=== PATIENT | female | born 1980 | race Caucasian/White ===

== ENCOUNTER 2022-11-20 13:21 | Outpatient (REF) | payer OTHER, SELFPAY ==
[2022-11-20 15:18] LABS: Rheumatoid Factor < 13.0 IU/mL (<15.0)
[2022-11-22 02:04] LABS: Lyme Abs Screen <0.90 index
[2022-11-24 14:14] LABS: Anti Nuclear Antibody Screen NEGATIVE (NEGATIVE)
== END 2022-11-20 13:22 | disposition home or self-care (01) ==
LOC: HO.LAB 13:21
PROVIDERS: PCP Family Medicine; Visit Provider Psychiatry & Neurology Neurology
DX: M79.7 Fibromyalgia (principal)
CPT/HCPCS: 36415; 82550; 86038; 86039; 86431; 86617; 86618

== ENCOUNTER → 2022-12-30 15:08 | Outpatient (BNVA) | payer OTHER, SELFPAY | PROVIDERS: PCP Family Medicine; Visit Provider Physician Assistant Surgical | DX: E66.9 Obesity, unspecified (principal); Z68.34 Body mass index [BMI] 34.0-34.9, adult; I10 Essential (primary) hypertension | CPT/HCPCS: 99202 ==

== ENCOUNTER 2023-06-14 16:56 | Inpatient (IN) | payer OTHER, SELFPAY ==
--- NOTE | ~2023-06-14 | CT_ITS ---
EXAMINATION: CT ABDOMEN AND PELVIS WITH CONTRAST CLINICAL INFORMATION: Right lower quadrant abdominal pain. COMPARISON: None available. TECHNIQUE: Multidetector volumetric images were obtained from the superior aspect of the liver through the pubic symphysis following administration 85 mL of Omnipaque 350 intravenous contrast. Sagittal and coronal reformatted images were obtained on the technologist's workstation. Oral contrast: No This CT examination was performed using dose optimization techniques as appropriate, variously including the following: *Automated exposure control *Adjustment of mA and/or kV according to patient size (this includes techniques or standardized protocols for targeted exams where dose is matched to indication/reason for exam; i.e. extremities or head) *Use of iterative reconstruction technique DLP: 678 mGy-cm FINDINGS: LUNG BASES: Subtle pleural-based opacities likely represent hypoventilatory changes. LIVER, GALLBLADDER, AND BILIARY TREE: The liver is normal in size, shape, and attenuation. No focal hepatic lesion or biliary ductal dilatation is present. The gallbladder is surgically absent. PANCREAS: Unremarkable. SPLEEN: Unremarkable. ADRENAL GLANDS: Unremarkable. KIDNEYS AND URETERS: The kidneys are normal in size, shape, and attenuation. No hydronephrosis, hydroureter, or calculi seen. No perinephric stranding. Exophytic cortical hypodensity at superior lateral cortex of the left kidney and intracortical hypodensity within the superolateral cortex of the right kidney, likely represent cysts. BLADDER: Unremarkable. GASTROINTESTINAL TRACT: The small and large bowel are unremarkable. Small sliding hiatal hernia. The appendix is abnormal, measures 1.2 cm at its maximum diameter shows mural thickening, enhancement of the mucosa as well as the wall and periappendiceal fat stranding, consistent with acute appendicitis (39:6). No evidence of any perforation, periappendiceal abscess formation or fluid collection. ABDOMINAL WALL: No significant hernia is appreciated. LYMPH NODES: Normal. VASCULAR: Unremarkable. PELVIC VISCERA: Uterus is heterogeneous, abnormally enlarged, most consistent with intramural fibroids. Bilateral adnexal hypodensities likely represent enlarged follicle-containing otherwise normal-appearing ovaries. Tiny focal calcifications are also noted within the right adnexal region. OSSEOUS STRUCTURES: Unremarkable. CT/CT abdomen pelvis w IV con IMPRESSION: 1. Abnormal study showing features of acute nonperforated appendicitis. 2. Surgically absent gallbladder. 3. Abnormal enlarged uterus showing features most consistent with uterine fibroids. Bilateral adnexal hypodensities likely represent enlarged follicle-containing otherwise normal-appearing ovaries. This critical result was discussed with Dr. Brock Marie M.D. at 7:51 PM on 06/14/2023 and it was ascertained that the content and urgency of the report was understood at the time of direct communication. Fleischner guidelines were followed.
[2023-06-14 17:01] VITALS: BP 166/98; PULSE 110; RESP 20; TEMP 37.2; O2SAT 100; BMI 31.4
--- NOTE | 2023-06-14 17:06 | ED_ITS ---
HPI - Abdominal Pain General Chief Complaint: Abdominal Pain Stated Complaint: abd pain Time Seen by Provider: 06/14/23 17:15 Source: patient Mode of arrival: ambulatory Limitations: no limitations History of Present Illness HPI narrative: 42-year-old female presents with right-sided abdominal pain. Symptoms started today. She woke up normal. She then developed a constant right-sided abdominal pain. The pain does not radiate. She describes as sharp stabbing pain. She rates it a 20/10. There is no clear relieving features. Worsened by certain positions. It is associated with nausea no vomiting. She denies any diarrhea constipation. She has had no fevers or chills. Related Data Home Medications Medication Instructions Recorded Confirmed ibuprofen 600 mg tablet 600 mg PO Q6H PRN pain 12/30/22 12/30/22 lisinopril 10 mg tablet 10 mg PO DAILY 12/30/22 12/30/22 Allergies Allergy/AdvReac Type Severity Reaction Status Date / Time kiwi Allergy Mild THROAT Verified 12/30/22 15:57 [Kiwi (Actinidia Chinensis)] SWELLING Review of Systems Review of Systems CONSTITUTIONAL: Denies weight loss, fever and chills. HEENT: Denies changes in vision and hearing. RESPIRATORY: Denies SOB and cough. CV: Denies palpitations no CP. GI: + abdominal pain, nausea, - vomiting and diarrhea. : Denies dysuria and urinary frequency. MSK: Denies myalgia and joint pain. SKIN: Denies rash and pruritus. NEUROLOGICAL: Denies headache and syncope. PSYCHIATRIC: Denies recent changes in mood. Denies anxiety and depression. All other ROS are negative unless in HPI PMFSH Past Medical History Medical History Delivery with history of Surgical History Hx of breast reduction, elective Hx of carpal tunnel repair Hx of foot surgery Hx of hand surgery Hx of tubal ligation S/P panniculectomy Family History Family History Mother Arthritis Diabetes Hypertension Depression Anxiety Father Diabetes Hypertension Son No problems noted. Son Heart murmur Daughter No problems noted. Social History Social History Alcohol intake: never Patient Tobacco Use Status: Never used Tobacco Smoked in Last 30 Days: No Use of substances other than those prescribed or required for medical reasons: Yes Substance Use Type: Marijuana Substance Use Frequency: Occasionally Advance Directives: No Advance Directives Information Provided: No Patient : No Physical Exam ED Vital Signs: Vital Signs - 24 hr 06/14/23 17:01 06/14/23 17:43 Temperature 99 F 99.9 F Pulse Rate 110 H 105 H Respiratory Rate 20 20 Blood Pressure 166/98 H 163/91 H Pulse Oximetry 100 98 Oxygen Delivery Method Room Air Room Air BMI result Body Mass Index 31.4 GEN: Well developed, no acute distress, alert, oriented HEENT: Normocephalic, atraumatic, normal external ears, nose appears normal, no oropharyngeal edema or exudates Eyes: Normal to appearance Neck: Supple, no lymphadenopathy Respiratory: Talks in complete sentences, no respiratory distress, clear to aus cultation bilaterally Cardiovascular: Regular rate and rhythm, no murmurs rubs or gallops Abdomen: Soft, right lower quadrant tenderness with guarding, no rebound, negative Hess sign, nondistended, no guarding, no rebound Back: No CVA tenderness Extremities: No clubbing cyanosis or edema Neurologic: No focal neurologic deficits, cranial nerves 2-12 intact, strength is 5/5 bilaterally Skin: No rash Course Course Course Narrative: This is a rapid medical exam. Deferred additional HPI, ROS, PE to primary provider. 42 yo female with history of HTN, fibrimyalgia here with right sided abdominal pain since this AM with chills. VSS WIll check labs, UA, urine preg VSS Reevaluation(s) Reevaluation #1: Received a call from the radiologist, positive for appendicitis which I independently reviewed the images and agree with the findings. Will order Zosyn and call General surgery. Time: 19:53 Reevaluation #2: Spoke with general surgeon, patient will be admitted. Starting patient on Zosyn. Patient aware findings. Time: 20:04 Medical Decision Making Medical Decision Making MDM Narrative: Patient presents with right-sided abdominal pain. Examination reveals right lower quadrant tenderness with guarding no rebound. This is most concerning for acute appendicitis. Differential diagnosis include IBD IBS, mesenteric adenitis, epiploic appendagitis, UTI, pyelonephritis, ureterolithiasis. Plan will be to obtain a CT scan to rule out the above differential diagnosis. Will check routine laboratory analysis with. Will provide patient with analgesia, IV fluids and antiemetics. Differential Diagnosis Differential Diagnoses: The differential diagnosis associated with the presentation includes (See above) Admission/Observation Consideration of admission/observation: Escalation of care including admis marin/observation considered Lab Data MDM Lab Attestation statement: I reviewed the patient's lab results. 06/14/23 17:28 06/14/23 17:42 Labs: Lab Results 06/14/23 06/14/23 06/14/23 Range/Units 17:28 17:42 18:01 WBC 17.5 H (4.8-10.8) X10*3/uL RBC 4.84 (4.20-5.50) X10*6/uL Hgb 11.1 L (12.0-16.0) g/dl Hct 36.7 L (37.0-47.0) % MCV 75.8 L (80.0-98.0) fL MCH 22.9 L (27.0-33.0) pg MCHC 30.2 L (31.0-35.0) g/dl RDW 18.0 H (11.0-16.0) % Plt Count 338 (160-400) X10*3/uL MPV 9.2 L (9.4-12.3) fL Immature Gran % (Auto) 0.5 H (0.0-0.4) % Neut % (Auto) 84.6 H (45-73) % Lymph % (Auto) 8.7 L (20-40) % Wallace % (Auto) 5.0 (2-11) % Eos % (Auto) 0.9 (0-4) % Baso % (Auto) 0.3 (0-2) % Lymph # (Auto) 1.5 (1.2-4.9) X10*3/uL Wallace # (Auto) 0.9 (0.1-1.2) X10*3/uL Eos # (Auto) 0.2 (0.0-0.4) X10*3/uL Baso # (Auto) 0.1 (0.0-0.2) X10*3/uL Abs Immat Gran (auto) 0.09 H (0.00-0.03) X10*3/uL Absolute Neuts (auto) 14.8 H (2.0-8.3) x10*3/uL Absolute Nucleated RBC 0.000 (0.0-0.012) X10*3/uL Nucleated RBC % (auto) 0.0 (0.0-0.2) /100WBC Smear Tech's Comments VERIFIED Sodium 138 (135-145) mmol/L Potassium 3.7 (3.3-5.1) mmol/L Chloride 104 (96-108) mmol/L Carbon Dioxide 25 (22-29) mmol/L Anion Gap 13 (12-20) BUN 6 L (9-16) mg/dL Creatinine 0.66 (0.5-1.4) mg/dL Estim Creat Clear Calc 102.1 Estimated GFR > 60 Random Glucose 91 (60-115) mg/dL Calcium 9.1 (8.4-10.2) mg/dL Total Bilirubin 0.9 (0.0-1.0) mg/dL Direct Bilirubin 0.3 (0.0-0.5) mg/dL AST 15 (5-31) U/L ALT 10 (0-31) U/L Alkaline Phosphatase 80 (39-117) U/L Total Protein 7.7 (6.5-8.0) g/dL Albumin 4.1 (3.5-5.0) g/dL Lipase 9 (8-78) U/L Urine Color Yellow Urine Appearance Cloudy Urine pH 6.0 (5.0-9.0) Ur Specific [place] 1.015 (1.005-1.025) Urine Protein Negative (Neg-Trace) mg/dL Urine Glucose (UA) Negative (Negative) mg/dL Urine Ketones Negative (Negative) mg/dL Urine Blood Negative (Negative) Urine Nitrite Negative (Negative) Ur Leukocyte Esterase Trace H (Negative) Urine RBC 0-2 (0-2) /HPF Urine WBC 6-10 H (0-5) /HPF Ur Squamous Epith Cells 0-2 (0-2) /HPF Urine Bacteria Trace (None Seen) Hyaline Casts 0-2 (0-2) /LPF Urine Test (NEGATIVE) 06/14/23 Range/Units 18:01 WBC (4.8-10.8) X10*3/uL RBC (4.20-5.50) X10*6/uL Hgb (12.0-16.0) g/dl Hct (37.0-47.0) % MCV (80.0-98.0) fL MCH (27.0-33.0) pg MCHC (31.0-35.0) g/dl RDW (11.0-16.0) % Plt Count (160-400) X10*3/uL MPV (9.4-12.3) fL Immature Gran % (Auto) (0.0-0.4) % Neut % (Auto) (45-73) % Lymph % (Auto) (20-40) % Wallace % (Auto) (2-11) % Eos % (Auto) (0-4) % Baso % (Auto) (0-2) % Lymph # (Auto) (1.2-4.9) X10*3/uL Wallace # (Auto) (0.1-1.2) X10*3/uL Eos # (Auto) (0.0-0.4) X10*3/uL Baso # (Auto) (0.0-0.2) X10*3/uL Abs Immat Gran (auto) (0.00-0.03) X10*3/uL Absolute Neuts (auto) (2.0-8.3) x10*3/uL Absolute Nucleated RBC (0.0-0.012) X10*3/uL Nucleated RBC % (auto) (0.0-0.2) /100WBC Smear Tech's Comments Sodium (135-145) mmol/L Potassium (3.3-5.1) mmol/L Chloride (96-108) mmol/L Carbon Dioxide (22-29) mmol/L Anion Gap (12-20) BUN (9-16) mg/dL Creatinine (0.5-1.4) mg/dL Estim Creat Clear Calc Estimated GFR Random Glucose (60-115) mg/dL Calcium (8.4-10.2) mg/dL Total Bilirubin (0.0-1.0) mg/dL Direct Bilirubin (0.0-0.5) mg/dL AST (5-31) U/L ALT (0-31) U/L Alkaline Phosphatase (39-117) U/L Total Protein (6.5-8.0) g/dL Albumin (3.5-5.0) g/dL Lipase (8-78) U/L Urine Color Urine Appearance Urine pH (5.0-9.0) Ur Specific [place] (1.005-1.025) Urine Protein (Neg-Trace) mg/dL Urine Glucose (UA) (Negative) mg/dL Urine Ketones (Negative) mg/dL Urine Blood (Negative) Urine Nitrite (Negative) Ur Leukocyte Esterase (Negative) Urine RBC (0-2) /HPF Urine WBC (0-5) /HPF Ur Squamous Epith Cells (0-2) /HPF Urine Bacteria (None Seen) Hyaline Casts (0-2) /LPF Urine Test NEGATIVE (NEGATIVE) Independent Interpretation I performed an independent interpretation of an: CT Scan (Acute appendicitis) Interpretation: CT/CT abdomen pelvis w IV con IMPRESSION: ? 1. Abnormal study showing features of acute nonperforated appendicitis. 2. Surgically absent gallbladder. 3. Abnormal enlarged uterus showing features most consistent with uterine fibroids. Bilateral adnexal hypodensities likely represent enlarged follicle-containing otherwise normal-appearing ovaries. ? This critical result was discussed with Dr. Brock Marie M.D. at 7:51 PM on 06/14/2023 and it was ascertained that the content and urgency of the report was understood at the time of direct communication. ? ? Fleischner guidelines were followed. Dictated By: Alejandra Ugarte MD Signed By: <Electronically signed by Alejandra Ugarte MD in OV> 06/14/231952 Prescription Management I considered prescription management with: Pain Medication Medications Administered Discontinued Medications Generic Name Dose Route Start Last Admin Trade Name Freq PRN Reason Stop Dose Admin Sodium Chloride 1,000 mls @ 999 mls/hr 06/14/23 17:30 06/14/23 18:09 Ns IV 06/14/23 18:30 999 mls/hr .Q1H1M EFRAIN Administration Iohexol 100 ml 06/14/23 18:58 06/14/23 18:59 Iohexol 350 Mg/Ml 100 Ml Infus..Btl IV 06/14/23 18:59 85 ml ONCE ONE Administration Ketorolac Tromethamine 15 mg 06/14/23 17:24 06/14/23 18:13 Ketorolac Tromethamine 15 Mg/Ml Vial IVPUSH 06/14/23 17:25 15 mg ONCE ONE Administration Ondansetron HCl 4 mg 06/14/23 17:24 06/14/23 18:13 Ondansetron Hcl 4 Mg/2 Ml Vial IVPUSH 06/14/23 17:25 4 mg ONCE ONE Administration Discharge Plan Discharge Clinical Impression: Abdominal pain, Acute appendicitis Patient Disposition: Admitted As Inpatient Prescriptions: No Action lisinopril 10 mg tablet 10 mg PO DAILY ibuprofen 600 mg tablet 600 mg PO Q6H PRN (Reason: pain)
[2023-06-14 17:43] VITALS: BP 163/91; PULSE 105; RESP 20; TEMP 37.7; O2SAT 98
[2023-06-14 17:54] LABS: Basophils Absolute Auto 0.1 X10*3/uL (0.0-0.2); Basophils Percent Auto 0.3 % (0-2); Eosinophils Absolute Auto 0.2 X10*3/uL (0.0-0.4); Eosinophils Percent Auto 0.9 % (0-4); Hematocrit 36.7 % (37.0-47.0); Hemoglobin 11.1 g/dl (12.0-16.0); Imm Gran Abs Auto 0.09 X10*3/uL (0.00-0.03); Imm Gran Pct Auto 0.5 % (0.0-0.4); Lymphocytes Absolute Auto 1.5 X10*3/uL (1.2-4.9); Lymphocytes Percent Auto 8.7 % (20-40); MANUAL DIFF FLAG SCAN; Mean Corpuscular HGB Conc 30.2 g/dl (31.0-35.0); Mean Corpuscular Hemoglobin 22.9 pg (27.0-33.0); Mean Corpuscular Volume 75.8 fL (80.0-98.0); Mean Platelet Volume 9.2 fL (9.4-12.3); Monocytes Absolute Auto 0.9 X10*3/uL (0.1-1.2); Neutrophils Absolute Auto 14.8 x10*3/uL (2.0-8.3); Neutrophils Percent Auto 84.6 % (45-73); PLT CLUMP 1; Red Blood Count 4.84 X10*6/uL (4.20-5.50); SCAN SMEAR FLAG 1
--- NOTE | 2023-06-14 17:54 | PC.NURSE ---
pt c/o worsening sharp abdominal pain, RLQ starting in AM after breakfast. radiating to to rest of abdomen and back. pt reports chills, normal BM eariler today, nausea w/o vomiting. temp 99.9, HR 105, pain 10/10.
[2023-06-14 18:01] LABS: Alanine Aminotransferase 10 U/L (0-31); Albumin Level 4.1 g/dL (3.5-5.0); Alkaline Phosphatase 80 U/L (39-117); Anion Gap 13 (12-20); Aspartate Amino Transferase 15 U/L (5-31); Bilirubin Direct 0.3 mg/dL (0.0-0.5); Bilirubin Total 0.9 mg/dL (0.0-1.0); Blood Urea Nitrogen 6 mg/dL (9-16); Calcium 9.1 mg/dL (8.4-10.2); Carbon Dioxide 25 mmol/L (22-29); Chloride 104 mmol/L (96-108); Creatinine Clr Calc Pharmacy 102.1; Estimated Glomerular Filt Rate > 60; Glucose Random 91 mg/dL (60-115); Lipase 9 U/L (8-78); Potassium 3.7 mmol/L (3.3-5.1); Sodium 138 mmol/L (135-145); Total Protein 7.7 g/dL (6.5-8.0)
[2023-06-14 18:09] LABS: Appearance Urine Cloudy; Color Urine Yellow; Glucose Urine UA Negative (Negative); Leukocyte Esterase Urine Trace (Negative); Nitrite Urine Negative (Negative); Specific Gravity - Urine 1.015 (1.005-1.025); UMIC TRIGGER UACC YES; Urine Blood Negative (Negative); Urine Ketones Negative (Negative); Urine Protein Negative (Neg-Trace)
[2023-06-14] MEDS: 0.9 % Sodium Chloride 1,000 ML 999 ML IV (18:09)
[2023-06-14 18:10] LABS: UPreg QC Valid YES; Urine Pregnancy NEGATIVE (NEGATIVE)
[2023-06-14 18:12] LABS: Platelet Count 338 X10*3/uL (160-400); SLIDE REVIEW VERIFIED; White Blood Count 17.5 X10*3/uL (4.8-10.8)
[2023-06-14] MEDS: ondansetron HCL 4 MG/2 ML VIAL IVPUSH (18:13)
[2023-06-14] MEDS: Ketorolac Tromethamine 15 MG/ML VIAL IVPUSH (18:13)
[2023-06-14 18:14] LABS: Bacteria Urine Trace (None Seen); Hyaline Casts Urine 0-2 /LPF (0-2); RBC Urine 0-2 /HPF (0-2); Squamous Epithelial Cell Urine 0-2 /HPF (0-2); UACC Culture Trigger YES
[2023-06-14] MEDS: iohexoL 350 MG/ML 100 ML INFUS..BTL IV (18:59)
--- NOTE | 2023-06-14 19:59 | P.HPGS_ITS ---
History of Present Illness History of Present Illness Date of Service: 06/15/23 Chief complaint: acute appendicitis Narrative: Catalina Latif is a 42 year old female presenting with acute onset of abd pain starting earlier today. She had progression of the pain & came to the ER where she was noted to have low-grade temp of 99.9F, leukocytosis & CT A/P with retrocecal appendicitis. PSH includes reduction mammoplasty, panniculectomy & cholecystectomy PMFSH Past Medical History Medical History Delivery with history of Family History Family History Mother Arthritis Diabetes Hypertension Depression Anxiety Father Diabetes Hypertension Son No problems noted. Son Heart murmur Daughter No problems noted. Surgical History Surgical History Hx of breast reduction, elective Hx of carpal tunnel repair Hx of foot surgery Hx of hand surgery Hx of tubal ligation S/P panniculectomy Social History Social History Alcohol intake: never Patient Tobacco Use Status: Never used Tobacco Smoked in Last 30 Days: No Use of substances other than those prescribed or required for medical reasons: Yes Substance Use Type: Marijuana Substance Use Frequency: Occasionally Advance Directives: No Advance Directives Information Provided: No Patient : No Meds Allergies Allergy/AdvReac Type Severity Reaction Status Date / Time kiwi Allergy Mild THROAT Verified 12/30/22 15:57 [Kiwi (Actinidia Chinensis)] SWELLING Active Medications: Current Medications Piperacillin Sod/Tazobactam (Sod 3.375 gm/ Sodium Chloride) 50 mls @ 100 mls/hr IV ONCE ONE Stop: 06/14/23 20:23 Home Medications Medication Instructions Recorded Confirmed Last Taken Type lisinopril 10 mg tablet 10 mg PO DAILY 12/30/22 06/14/23 06/14/23 History lamotrigine 25 mg tablet 25 mg PO BID 06/14/23 06/14/23 06/14/23 History hydroxyzine HCl 10 mg tablet 10 mg PO BEDTIME PRN Anxiety 06/15/23 06/15/23 06/14/23 History norelgestromin 150 mcg-e.estradiol 1 patch topical QWEEK 06/15/23 06/15/23 06/14/23 History 35 mcg/24 hr weekly transderm patch (Xulane) trazodone 50 mg tablet 50 mg PO NEEDED insomnia 06/15/23 06/15/23 06/14/23 History Physical Exam Vital Signs: Vital Signs: Last Vital Signs Temp 99.9 F 06/14/23 17:43 Pulse 105 H 06/14/23 17:43 Resp 20 06/14/23 17:43 BP 163/91 H 06/14/23 17:43 Pulse Ox 98 06/14/23 17:43 O2 Del Method Room Air 06/14/23 17:43 BMI result Body Mass Index 31.4 The patient is non-toxic & in good spirits NC/AT, PERRLA, EOMI Mood, affect & judgment all appear appropriate Sclera anicteric conjunctiva pink and moist Oropharynx is clear with no aphthous ulcers, Mallampati class 4, mucous membranes moist Neck is supple with no masses, adenopathy or bruits Heart is regular, normal S1-S2 no rubs or murmurs Lungs are clear and equal anteriorly with no audible wheezing, rubs or dullness to percussion Abdomen is oese with no demonstrable hernias. Right lower quadrant tenderness that is localized to the right lower quadrant is present and diffuse peritonitis is not noted. Well-healed abdominal scars are noted with no evidence of hernia. No HSM, rebound, rigidity, guarding, masses or bruits are present. Rectal exam is deferred Skin has good turgor and is free of rashes Extremities free of cyanosis clubbing edema Results Results Labs: Short CBC 06/14/23 Range/Units 17:28 WBC 17.5 H (4.8-10.8) X10*3/uL Hgb 11.1 L (12.0-16.0) g/dl Hct 36.7 L (37.0-47.0) % Plt Count 338 (160-400) X10*3/uL BMP 06/14/23 17:42 Sodium 138 Potassium 3.7 Chloride 104 Carbon Dioxide 25 BUN 6 L Creatinine 0.66 Calcium 9.1 Liver Function 06/14/23 Range/Units 17:42 Total Bilirubin 0.9 (0.0-1.0) mg/dL Direct Bilirubin 0.3 (0.0-0.5) mg/dL AST 15 (5-31) U/L ALT 10 (0-31) U/L Alkaline Phosphatase 80 (39-117) U/L Albumin 4.1 (3.5-5.0) g/dL Urine 06/14/23 06/14/23 Range/Units 18:01 18:01 Urine Color Yellow Urine Appearance Cloudy Urine pH 6.0 (5.0-9.0) Ur Specific [place] 1.015 (1.005-1.025) Urine Protein Negative (Neg-Trace) mg/dL Urine Glucose (UA) Negative (Negative) mg/dL Urine Test NEGATIVE (NEGATIVE) Abdomen CT scan report/results: report reviewed and image reviewed CT scan - pelvis: report reviewed and image reviewed Assessment and Plan (1) Acute appendicitis: Status: Acute (2) Fibromyalgia: Status: Acute (3) HTN (hypertension): Status: Acute (4) Obesity (BMI 30-39.9): Status: Acute Plan Admit for IV Abx, IVF & pain management OR tomorrow morning BP elevated, give Lisinopril, 10mg PO now Void bladder on-call to OR, SCDs ADDENDUM The patient has minimal improvement in her symptoms today. We reviewed options including antibiotic/medical management trial verses appendectomy. Patient seemed understand her options and declined an house superintendent. I reviewed the inherent risks of surgery which include, but are not limited to bleeding, infection, need for conversion to open operation, the possibility of negative exploration or unexpected pathology, activity restrictions postoperatively to minimize incisional hernia, and the risks of needing another procedure in the event of a complication were all discussed and apparently understood. The patient seemed understand and wants to proceed with a laparoscopic, possible open appendectomy. We also reviewed the possibility that her retrocecal appendix could be perforated and require a temporary drain, cultures and IV antibiotics and that I would no after the operation. Patient will continue NPO, void her urinary bladder risk reduction counselor and have SCDs in place. Zosyn has been ordered. Patient is requested that I communicate with her , Marito, at [phone] following the procedure. Time Spent With Patient Time: Total time managing care of this patient today ____ minutes. Quality Stroke Does the patient have a stroke diagnosis?: No VTE Prior VTE?: No VTE Risk Level:: Surgical - moderate VTE Device Contraindication: N/A - Device Ordered VTE Drug Contraindication: N/A - Med Ordered Procedures Date of Service Date of Service: 06/15/23
[2023-06-14] MEDS: Piperacillin Sodium/Tazobactam 3.375 GM in 0.9 % Sodium Chloride 50 ML IV (20:28)
[2023-06-14] MEDS: lisinopriL 10 MG TABLET PO (20:31)
[2023-06-14] MEDS: Lactated Ringers 1,000 ML 125 ML IVCONT (21:06)
[2023-06-14 21:39] VITALS: BP 135/89; PULSE 107; RESP 18; O2SAT 97
--- NOTE | 2023-06-14 22:21 | PC.NURSE ---
Addendum entered by Luli Soto RN 06/15/23 04:16: New IV inserted to right hand #20. Previous IV was infiltrated. Original Note: Assumed care at 2200. Pt came via stretcher. Alert and oriented. Ambulatory. LR infusing at 125an hour. 5/10 pain level to her abdomen. Kept NPO with meds. Settled in bed. Requesting from Provider trazodone for sleep. MD Toney aware.
[2023-06-14] MEDS: Acetaminophen 325 MG TABLET 975 MG PO (22:31)
[2023-06-15] VITALS (16 sets, daily range): BP systolic 88–125; BP diastolic 44–77; PULSE 59–99; RESP 16–17; TEMP 36.2–37.1; O2SAT 91–100
[2023-06-15] MEDS: HYDROmorphone HCl 0.5 MG/0.5 ML SYRINGE 0.25 MG IVPUSH ×3 (00:36→08:30)
[2023-06-15] MEDS: Piperacillin Sodium/Tazobactam 3.375 GM in 0.9 % Sodium Chloride 50 ML IV ×2 (01:48→08:30)
[2023-06-15 05:37] LABS: MANUAL DIFF FLAG NO
[2023-06-15 05:40] LABS: Basophils Percent Auto 0.3 % (0-2); Eosinophils Absolute Auto 0.2 X10*3/uL (0.0-0.4); Eosinophils Percent Auto 1.7 % (0-4); Hematocrit 31.2 % (37.0-47.0); Hemoglobin 9.6 g/dl (12.0-16.0); Imm Gran Abs Auto 0.05 X10*3/uL (0.00-0.03); Imm Gran Pct Auto 0.4 % (0.0-0.4); Lymphocytes Absolute Auto 2.3 X10*3/uL (1.2-4.9); Lymphocytes Percent Auto 16.2 % (20-40); Mean Corpuscular HGB Conc 30.8 g/dl (31.0-35.0); Mean Corpuscular Hemoglobin 23.1 pg (27.0-33.0); Mean Platelet Volume 8.4 fL (9.4-12.3); Monocytes Absolute Auto 0.9 X10*3/uL (0.1-1.2); Monocytes Percent Auto 6.2 % (2-11); Neutrophils Absolute Auto 10.5 x10*3/uL (2.0-8.3); Neutrophils Percent Auto 75.2 % (45-73); Platelet Count 348 X10*3/uL (160-400); Red Blood Count 4.16 X10*6/uL (4.20-5.50); Red Cell Distribution Width 17.8 % (11.0-16.0); White Blood Count 13.9 X10*3/uL (4.8-10.8)
[2023-06-15 05:52] LABS: Anion Gap 12 (12-20); Blood Urea Nitrogen 6 mg/dL (9-16); Calcium 8.8 mg/dL (8.4-10.2); Carbon Dioxide 26 mmol/L (22-29); Chloride 104 mmol/L (96-108); Creatinine Clr Calc Pharmacy 105.2; Estimated Glomerular Filt Rate > 60; Glucose Random 93 mg/dL (60-115); Potassium 3.6 mmol/L (3.3-5.1); Sodium 138 mmol/L (135-145)
--- NOTE | 2023-06-15 07:36 | PC.NURSE ---
Dr. smalls at bedside pt aware of plan of care for surgery this am. pt has been npo since midnight.
--- NOTE | 2023-06-15 08:21 | PHA.MEDREC ---
Pharmacy Consult ? Medication Reconciliation Pharmacy has completed the medication reconciliation.
--- NOTE | 2023-06-15 08:28 | MHC.EDTECH ---
[facility]. patient awaiting surgery. tolerated ambulating by herself well.
[2023-06-15] MEDS: 0.9 % Sodium Chloride Flush 3 ML SYRINGE IVFLUSH (08:32)
[2023-06-15] MEDS: ondansetron HCL 4 MG/2 ML VIAL IVPUSH (09:00)
--- NOTE | 2023-06-15 09:10 | PC.NURSE ---
PT IS A/O X 4 NO SOB/DANY NOTED SPEAKS IN FULL SENTENCES. PT C/O 5/10 R SIDE PAIN, MED X 1 WITH DILAUDED 0.25MG. PT IS AWARE OF PLAN OF CARE FOR SURGERY TODAY PER DR. ORR.
--- NOTE | 2023-06-15 09:13 | HO.ANESPROP2 ---
HPI - Anesthesia Eval Consult details Narrative: Acute appendicitis PMFSH Active Problems Active Problems: All Active Problems (Updated 06/14/23 @ 20:04 by Brock Marie MD) Abdominal pain (Acute) Acute appendicitis (Acute) Restless leg syndrome (Acute) Fibromyalgia (Acute) Degenerative disorder of musculoskeletal system (Acute) HTN (hypertension) (Acute) Obesity (BMI 30-39.9) (Acute) Past Medical History Medical History Delivery with history of Family History Family History Mother Arthritis Diabetes Hypertension Depression Anxiety Father Diabetes Hypertension Son No problems noted. Son Heart murmur Daughter No problems noted. Family history of problems with anesthesia: No Surgical History Surgical History Hx of breast reduction, elective Hx of carpal tunnel repair Hx of foot surgery Hx of hand surgery Hx of tubal ligation S/P panniculectomy History of Problems with Anesthesia: No Social History Social History Alcohol intake: never Patient Tobacco Use Status: Never used Tobacco Substance Use Type: Marijuana Meds Allergies Allergy/AdvReac Type Severity Reaction Status Date / Time kiwi Allergy Mild THROAT Verified 12/30/22 15:57 [Kiwi (Actinidia Chinensis)] SWELLING Active Medications: Current Medications Acetaminophen (Acetaminophen 325 Mg Tablet) 975 mg PO Q6H PRN PRN Reason: Pain, Mild (Pain Scale 1-3) Last Admin: 06/14/23 22:31 Dose: 975 mg Hydromorphone HCl (Hydromorphone Hcl 0.5 Mg/0.5 Ml Syringe) 0.25 mg IVPUSH Q2H PRN; Protocol PRN Reason: Pain, Moderate(Pain Scale 4-6) Last Admin: 06/15/23 08:30 Dose: 0.25 mg Piperacillin Sod/Tazobactam (Sod 3.375 gm/ Sodium Chloride) 50 mls @ 100 mls/hr IV Q6H EFRAIN Last Admin: 06/15/23 08:30 Dose: 100 mls/hr Lactated Ringer's (Lr) 1,000 mls @ 125 mls/hr IVCONT .Q8H [facility] Last Admin: 06/15/23 05:58 Dose: Not Given Ibuprofen (Ibuprofen 400 Mg Tablet) 400 mg PO Q6H PRN PRN Reason: Pain, Mild (Pain Scale 1-3) Ondansetron HCl (Ondansetron Hcl 4 Mg/2 Ml Vial) 4 mg IVPUSH Q6H PRN PRN Reason: Nausea and Vomiting Last Admin: 06/15/23 09:00 Dose: 4 mg Sodium Chloride (0.9 % Sodium Chloride Flush 3 Ml Syringe) 3 ml IVFLUSH QSHIFT [facility] Last Admin: 06/15/23 08:32 Dose: 3 ml Home Medications Medication Instructions Recorded Confirmed Last Taken Type lisinopril 10 mg tablet 10 mg PO DAILY 12/30/22 06/14/23 06/14/23 History lamotrigine 25 mg tablet 25 mg PO BID 06/14/23 06/14/23 06/14/23 History hydroxyzine HCl 10 mg tablet 10 mg PO BEDTIME PRN Anxiety 06/15/23 06/15/23 06/14/23 History norelgestromin 150 mcg-e.estradiol 1 patch topical QWEEK 06/15/23 06/15/23 06/14/23 History 35 mcg/24 hr weekly transderm patch (Xulane) trazodone 50 mg tablet 50 mg PO NEEDED insomnia 06/15/23 06/15/23 06/14/23 History Exam Exam Date and Time: June 15, 2023 0913 Height,Weight and Vital Signs: Height 5 ft 1 in Weight 75.4 kg Last Vital Signs Temp 98.4 F 06/15/23 07:19 Pulse 76 06/15/23 07:19 Resp 17 06/15/23 07:19 BP 123/62 06/15/23 07:19 Pulse Ox 95 06/15/23 07:19 O2 Del Method Room Air 06/15/23 07:19 Pertinent Lab Results Pertinent Lab Results: Laboratory Tests 06/14/23 06/14/23 06/14/23 17:28 17:42 18:01 WBC 17.5 H RBC 4.84 Hgb 11.1 L Hct 36.7 L MCV 75.8 L MCH 22.9 L MCHC 30.2 L RDW 18.0 H Plt Count 338 MPV 9.2 L Immature Gran % (Auto) 0.5 H Neut % (Auto) 84.6 H Lymph % (Auto) 8.7 L [place] % (Auto) 5.0 Eos % (Auto) 0.9 Baso % (Auto) 0.3 Lymph # (Auto) 1.5 [place] # (Auto) 0.9 Eos # (Auto) 0.2 Baso # (Auto) 0.1 Abs Immat Gran (auto) 0.09 H Absolute Neuts (auto) 14.8 H Absolute Nucleated RBC 0.000 Nucleated RBC % (auto) 0.0 Smear Tech's Comments VERIFIED Sodium 138 Potassium 3.7 Chloride 104 Carbon Dioxide 25 Anion Gap 13 BUN 6 L Creatinine 0.66 Estim Creat Clear Calc 102.1 Estimated GFR > 60 Random Glucose 91 Calcium 9.1 Total Bilirubin 0.9 Direct Bilirubin 0.3 AST 15 ALT 10 Alkaline Phosphatase 80 Total Protein 7.7 Albumin 4.1 Prealbumin Lipase 9 Urine Color Yellow Urine Appearance Cloudy Urine pH 6.0 Ur Specific [place] 1.015 Urine Protein Negative Urine Glucose (UA) Negative Urine Ketones Negative Urine Blood Negative Urine Nitrite Negative Ur Leukocyte Esterase Trace H Urine RBC 0-2 Urine WBC 6-10 H Ur Squamous Epith Cells 0-2 Urine Bacteria Trace Hyaline Casts 0-2 Urine Test 06/14/23 06/14/23 06/15/23 18:01 20:49 05:27 WBC 13.9 H RBC 4.16 L Hgb 9.6 L Hct 31.2 L MCV 75.0 L MCH 23.1 L MCHC 30.8 L RDW 17.8 H Plt Count 348 MPV 8.4 L Immature Gran % (Auto) 0.4 Neut % (Auto) 75.2 H Lymph % (Auto) 16.2 L [place] % (Auto) 6.2 Eos % (Auto) 1.7 Baso % (Auto) 0.3 Lymph # (Auto) 2.3 [place] # (Auto) 0.9 Eos # (Auto) 0.2 Baso # (Auto) 0.0 Abs Immat Gran (auto) 0.05 H Absolute Neuts (auto) 10.5 H Absolute Nucleated RBC 0.000 Nucleated RBC % (auto) 0.0 Smear Tech's Comments Sodium Potassium Chloride Carbon Dioxide Anion Gap BUN Creatinine Estim Creat Clear Calc Estimated GFR Random Glucose Calcium Total Bilirubin Direct Bilirubin AST ALT Alkaline Phosphatase Total Protein Albumin Prealbumin 21.0 Lipase Urine Color Urine Appearance Urine pH Ur Specific [place] Urine Protein Urine Glucose (UA) Urine Ketones Urine Blood Urine Nitrite Ur Leukocyte Esterase Urine RBC Urine WBC Ur Squamous Epith Cells Urine Bacteria Hyaline Casts Urine Test NEGATIVE 06/15/23 05:27 WBC RBC Hgb Hct MCV MCH MCHC RDW Plt Count MPV Immature Gran % (Auto) Neut % (Auto) Lymph % (Auto) [place] % (Auto) Eos % (Auto) Baso % (Auto) Lymph # (Auto) [place] # (Auto) Eos # (Auto) Baso # (Auto) Abs Immat Gran (auto) Absolute Neuts (auto) Absolute Nucleated RBC Nucleated RBC % (auto) Smear Tech's Comments Sodium 138 Potassium 3.6 Chloride 104 Carbon Dioxide 26 Anion Gap 12 BUN 6 L Creatinine 0.64 Estim Creat Clear Calc 105.2 Estimated GFR > 60 Random Glucose 93 Calcium 8.8 Total Bilirubin Direct Bilirubin AST ALT Alkaline Phosphatase Total Protein Albumin Prealbumin Lipase Urine Color Urine Appearance Urine pH Ur Specific [place] Urine Protein Urine Glucose (UA) Urine Ketones Urine Blood Urine Nitrite Ur Leukocyte Esterase Urine RBC Urine WBC Ur Squamous Epith Cells Urine Bacteria Hyaline Casts Urine Test Airway Mallampati Class: II TM Dist: >3cm Neck ROM: Full Loose/Missing/Broken Teeth: No Heart: RRR Lungs: CTA Assessment and Plan Assessment Anesthesia Assessment: Anesthesia Plan Discussed and Chart Reviewed Final Anesthetic Review Family History of Problems with Anesthesia: No History of Problems with Anesthesia: No NPO: Yes ASA Class: III Final Preanesthetic Review: No Changes in Pt Med Stat, Meds/Allgs Chart Reviewed, Consent Obtained/Reviewed and Anes Risks/Benef Reviewed Patient Risk: Intermediate Procedure Risk: Intermediate Anesthetic Plan Anesthetic Plan: GA Disposition: Standard PACU
--- NOTE | 2023-06-15 09:38 | P.OP_ITS ---
Operative Note Operative Note Date of Service: 06/15/23 Narrative: Preop diagnosis: [Acute appendicitis, retrocecal] Postop diagnosis: [Same] Procedure: [Laparoscopic appendectomy] Surgeon: Mo Owens MD Assist: [] Anesthesia: [GET, local: Lidocaine, 1% with epi/ropivacaine, 0.5% in 50 50 mix] Estimated blood loss: [3cc] Specimen: [1) peritoneal fluid for Gram stain and culture, 2) appendix] Intraoperative findings: [Several cc of turbid fluid was noted in the pelvis and aspirated, the base of the appendix was retroperitoneal but grossly, there was no findings of appendiceal perforation.] Indications: [The patient is a 42-year-old woman who had progressive 24 hour abdominal pain localizing to the right lower quadrant who presented with fever to 99.9 F, leukocytosis and CT demonstrating a retrocecal appendicitis without obvious perforation. While the patient had some clinical improvement on IV antibiotics, the option of medical management and operative management were discussed and the patient seemed understand her options. She declined an cab worker. I reviewed the inherent risks of surgery which include, but are not limited to bleeding, infection, need for conversion to open operation, the possibility of negative exploration or unexpected pathology, activity restrictions postoperatively to minimize incisional hernia, and the risks of needing another procedure in the event of a complication were all discussed and apparently understood.? The patient seemed understand and wants to proceed with a laparoscopic, possible open appendectomy.? We also reviewed the possibility that her retrocecal appendix could be perforated and require a temporary drain, cultures and IV antibiotics and that I would no after the operation.] Procedure: [The patient was identified in the preoperative holding area and again in the operating room. An appropriate time-out was performed. The patient had voided bladder transmission superintendent, SCDs were in place and she has been on Zosyn since admission. The patient was induced in general endotracheal anesthesia administered with excellent effect. The abdomen was widely prepped and draped in the usual manner for surgery. Preemptive local was used at all trocar insertion sites. The abdomen was accessed using a Veress needle. A transverse supraumbilical incision was made, the Veress needle inserted without incident, an appropriate drop test performed and a pneumoperitoneum of 15 mmHg was obtained using carbon dioxide. Opening pressures were 5 mmHg. Next, the Veress needle was withdrawn and the abdomen was accessed through the incision with a 30 degree/5 mm laparoscoped over Optiview trocar technique without incident. In examining the bowel & mesentary deep to the Veress needle, no evidence of injury was present. The remaining trocars were placed under direct laparoscopic vision with preemptive analgesia. The patient was then positioned in Trendelenburg, banked left. The appendix was identified and tracked down to the cecum. The base of the appendix was retrocecal requiring mobilization of the cecum and peritoneal fold. A window was made in the mesoappendix and the mesoappendix carefully dissected using the 5 mm LigaSure [place] tip. An Endo-MELITON stapler, purple load, was placed across the appendiceal base on the cecum the and fired with good hemostasis and closure. The specimen was placed in an Endo-Catch bag and delivered through the 12 mm port in the left lower quadrant. Operative field was irrigated and inspected for hemostasis which was good. Patient was returned to neutral position, the abdomen deflated and the trocars removed. 12 mm fascia was closed with 0- Polysorb and skin closed with 4-0 Monocryl subcuticular sutures. The abdomen was washed and dried, Mastisol and Steri-Strips applied followed by Band-Aids. Patient tolerated the procedure well and was sent to the recovery in stable condition. All sponge instrument counts were correct. ]
[2023-06-15] MEDS: Lactated Ringers 1,000 ML 125 ML IVCONT (10:18)
--- NOTE | 2023-06-15 11:43 | PC.NURSE ---
RN TO RN REPORT GIVEN TO DAMARIS (OR). PT TRANSPORTED TO OR IN A W/C WITH LR 125ML/HR.
--- NOTE | 2023-06-15 13:09 | P.DS_ITS ---
DS: Providers Provider Date of Service: 06/15/23 Date of admission: 06/14/23 20:01 Primary care physician: Lisa Yan MD Consults: 06/14/23 19:54 Consult to General Surgery Stat Consulting [place] [facility] [place] [facility] Reason for consultation: acute appendicitis DS: Diagnosis Discharge Diagnosis (1) Acute appendicitis: Status: Acute (2) Fibromyalgia: Status: Acute (3) HTN (hypertension): Status: Acute (4) Obesity (BMI 30-39.9): Status: Acute DS: Summary Hospital Course Hospital Course: The patient is a 42-year-old woman who presented with abdominal pain, leukocytosis, fever and CT demonstrating acute appendicitis. Options including medical management with IV antibiotics versus surgery were discussed at length. The patient declined an it compliance analyst. She wanted to proceed with surgery. Intraoperatively, she was noted to have non perforated appendicitis, underwent an uneventful laparoscopic appendectomy and was discharged home in improved condition. Time Spent with Patient Time attestation: Total time managing care of this patient today ____ minutes. Discharge coordination time: Less than 30 minutes Quality: Safe Use of Opioids Does Pt have an Active Cancer Diagnosis on the Problem List?: No Quality: Stroke Does the patient have a stroke diagnosis?: No Physical Exam Vital Signs: Vital Signs: Last Vital Signs Temp 98.4 F 06/15/23 07:19 Pulse 76 06/15/23 07:19 Resp 17 06/15/23 07:19 BP 123/62 06/15/23 07:19 Pulse Ox 95 06/15/23 07:19 O2 Del Method Room Air 06/15/23 07:19 BMI result Body Mass Index 31.4 DS: Data Data Completed and Pending Pending studies at discharge: Pending at discharge 06/15/23 13:06 Surgical [PTH] Routine Labs on day of discharge: Laboratory Results - last 24 hr 06/14/23 06/14/23 06/14/23 17:28 17:42 18:01 WBC 17.5 H RBC 4.84 Hgb 11.1 L Hct 36.7 L MCV 75.8 L MCH 22.9 L MCHC 30.2 L RDW 18.0 H Plt Count 338 MPV 9.2 L Immature Gran % (Auto) 0.5 H Neut % (Auto) 84.6 H Lymph % (Auto) 8.7 L [place] % (Auto) 5.0 Eos % (Auto) 0.9 Baso % (Auto) 0.3 Lymph # (Auto) 1.5 [place] # (Auto) 0.9 Eos # (Auto) 0.2 Baso # (Auto) 0.1 Abs Immat Gran (auto) 0.09 H Absolute Neuts (auto) 14.8 H Absolute Nucleated RBC 0.000 Nucleated RBC % (auto) 0.0 Smear Tech's Comments VERIFIED Sodium 138 Potassium 3.7 Chloride 104 Carbon Dioxide 25 Anion Gap 13 BUN 6 L Creatinine 0.66 Estim Creat Clear Calc 102.1 Estimated GFR > 60 Random Glucose 91 Calcium 9.1 Total Bilirubin 0.9 Direct Bilirubin 0.3 AST 15 ALT 10 Alkaline Phosphatase 80 Total Protein 7.7 Albumin 4.1 Prealbumin Lipase 9 Urine Color Yellow Urine Appearance Cloudy Urine pH 6.0 Ur Specific [place] 1.015 Urine Protein Negative Urine Glucose (UA) Negative Urine Ketones Negative Urine Blood Negative Urine Nitrite Negative Ur Leukocyte Esterase Trace H Urine RBC 0-2 Urine WBC 6-10 H Ur Squamous Epith Cells 0-2 Urine Bacteria Trace Hyaline Casts 0-2 Urine Test 06/14/23 06/14/23 06/15/23 18:01 20:49 05:27 WBC 13.9 H RBC 4.16 L Hgb 9.6 L Hct 31.2 L MCV 75.0 L MCH 23.1 L MCHC 30.8 L RDW 17.8 H Plt Count 348 MPV 8.4 L Immature Gran % (Auto) 0.4 Neut % (Auto) 75.2 H Lymph % (Auto) 16.2 L [place] % (Auto) 6.2 Eos % (Auto) 1.7 Baso % (Auto) 0.3 Lymph # (Auto) 2.3 [place] # (Auto) 0.9 Eos # (Auto) 0.2 Baso # (Auto) 0.0 Abs Immat Gran (auto) 0.05 H Absolute Neuts (auto) 10.5 H Absolute Nucleated RBC 0.000 Nucleated RBC % (auto) 0.0 Smear Tech's Comments Sodium Potassium Chloride Carbon Dioxide Anion Gap BUN Creatinine Estim Creat Clear Calc Estimated GFR Random Glucose Calcium Total Bilirubin Direct Bilirubin AST ALT Alkaline Phosphatase Total Protein Albumin Prealbumin 21.0 Lipase Urine Color Urine Appearance Urine pH Ur Specific [place] Urine Protein Urine Glucose (UA) Urine Ketones Urine Blood Urine Nitrite Ur Leukocyte Esterase Urine RBC Urine WBC Ur Squamous Epith Cells Urine Bacteria Hyaline Casts Urine Test NEGATIVE 06/15/23 05:27 WBC RBC Hgb Hct MCV MCH MCHC RDW Plt Count MPV Immature Gran % (Auto) Neut % (Auto) Lymph % (Auto) [place] % (Auto) Eos % (Auto) Baso % (Auto) Lymph # (Auto) [place] # (Auto) Eos # (Auto) Baso # (Auto) Abs Immat Gran (auto) Absolute Neuts (auto) Absolute Nucleated RBC Nucleated RBC % (auto) Smear Tech's Comments Sodium 138 Potassium 3.6 Chloride 104 Carbon Dioxide 26 Anion Gap 12 BUN 6 L Creatinine 0.64 Estim Creat Clear Calc 105.2 Estimated GFR > 60 Random Glucose 93 Calcium 8.8 Total Bilirubin Direct Bilirubin AST ALT Alkaline Phosphatase Total Protein Albumin Prealbumin Lipase Urine Color Urine Appearance Urine pH Ur Specific [place] Urine Protein Urine Glucose (UA) Urine Ketones Urine Blood Urine Nitrite Ur Leukocyte Esterase Urine RBC Urine WBC Ur Squamous Epith Cells Urine Bacteria Hyaline Casts Urine Test Discharge Plan Discharge Anticipated Discharge Date/Time: 06/15/23 13:08 Patient Disposition: Home, Self-Care Discharge Diagnosis: Acute appendicitis, status post lap appy Referrals: Lisa Yan MD [Primary Care Provider] - 1 Week Mo Owens MD [Physician] - 1 Week Discharge Medications: New oxycodone 5 mg tablet 5 mg PO Q4H PRN (Reason: pain) Qty: 14 0RF Rx Instructions: Partial Fill upon patient request. Continued lamotrigine 25 mg tablet 25 mg PO BID trazodone 50 mg tablet 50 mg PO NEEDED hydroxyzine HCl 10 mg tablet 10 mg PO BEDTIME PRN (Reason: Anxiety) Xulane 150-35 mcg/24 hr patch weekly 1 patch topical QWEEK lisinopril 10 mg tablet 10 mg PO DAILY Discharge Orders: Discharge Order (Routine); Ordered 06/15/23 Ordered By: Mo Owens Diet: Advance to usual diet Activity on Discharge: No heavy lifting Stand Alone Forms: Patient Portal Discharge page Activity Restrictions/Additional Instructions: You had a laparoscopic appendectomy performed by Dr. Owens. It is normal to feel some minor abdominal discomfort due to the gas from the operation, however if you develop severe pain in your abdomen or chest, fevers over 100F, vomiting and are unable to keep liquids down, you should contact Dr. Owens or report to the nearest emergency department. If your incisions become red, swollen and tender, draining pus or have problems, please contact Dr. Owens report to the nearest emergency department. If you have bandages on your incisions, leave them in place for 48 hours, then remove them. You can shower but not soak in a tub after removing the bandages. If there are paper tapes known as butterflies/Steri-Strips, leave them fall off on their own in 1-2 weeks. You do not need to put another bandage on your incisions unless your clothing rubs and irritates your incisions. You can shower after you removed your bandages in 48 hours, but do not soak in a tub, go in a pool, or go swimming in a [place] pond or ocean. Please let the paper tapes to dry after getting them wet. You do not need to replace a bandage on lesser clothing irritates the incision. You may find that pants with an elastic waist like gym cloths or suspenders are more comfortable than pants requiring a belt until your incisions completely heal. Because of the operation, you should not lift more than 20 lb for the next 4 weeks. Any strenuous activity such as lifting more than 20 lb, digging, yoga, any athletic activity, like running, soccer, or other strenuous activity, lifting heavy bags/groceries, swimming, martial arts, or other strenuous athletic activities can cause hernias. If you have any questions regarding a specific activity, please ask Dr. Owens. Avoiding strenuous activities will minimize the risk of incisional hernias. At your 1 week post-op office visit, Dr. Owens will discuss returning to work on light duty with you. Since you can perform light duty, you are not disabled, but your employer may not allow you to return until you have no restrictions; it is up to you to discuss this issue, as we cannot disclose personal information. Please bring any paperwork to that follow-up appointment from your employer. Please note that you are not disabled and need to discuss your work restrictions for medical reasons with your employer. If you do not have a follow-up post-op visit, call [phone] to schedule one, or call with questions. If you were prescribed an antibiotic, continue taking the medication as prescribed. The anesthesia from the operation and pain medicine will cause constipation. You can purchase [id number]-vnsvsip stool softener known as Colace/docusate, 100 mg and take 2 tablets in the morning with breakfast and 2 tablets in the evening after dinner to minimize this problem. Even if you are not taking narcotics, the anesthesia can cause constipation. Unless you have a medical reason, you should take [id number] Tylenol/acetaminophen, 2 tablets with vslb-xkg-[id number] ibuprofen, 2 tablets, every 6 hours to help with pain. Add the narcotic pain medicine if you are still having pain. Ice packs are also allowed to minimize pain and swelling. You should eat a high-protein, high-fiber, low-fat diet to optimize healing. Please resume any preoperative medications unless otherwise directed by Dr. Owens. Please contact your primary care provider for a follow-up appointment in 2 weeks. Care Plan Goals: Allow adequate postoperative healing Health Concerns: Follow-up with your primary care provider regarding other medical issues Plan of Treatment: Allow adequate postoperative healing Assessment: Status post laparoscopic appendectomy for acute appendicitis
--- NOTE | 2023-06-15 13:58 | PC.NURSE ---
called pharmacy because md smalls discharged patient before patient was even discharged or medicated from the pacu dept. called pharmacy and spoke to tatum and verified this occurrence.
[2023-06-15] MEDS: oxyCODONE HCl Immed Release 5 MG TABLET PO (14:26)
--- NOTE | 2023-06-15 14:47 | PC.NURSE ---
SENT HOME A INCENTIVE SPIROMETER. TEACHING PROVIDED.
--- NOTE | 2023-06-15 15:04 | PC.NURSE ---
PATIENT DISCHARGED HOME AT 1505.
== END 2023-06-15 12:00 | disposition home or self-care (01) | DRG 234 ==
LOC: HO.ED 20:04 → HO.EDOVER 20:27
PROVIDERS: Admitting Provider Surgery; Emergency Provider Emergency Medicine; PCP Family Medicine; Visit Provider Surgery
PROC: 0DTJ4ZZ Resection of Appendix, Percutaneous Endoscopic Approach (ICD-10-PCS; CPT 44970; principal; 2023-06-15 10:30)
DX: K35.80 Unspecified acute appendicitis (principal); E66.9 Obesity, unspecified; M79.7 Fibromyalgia; Z68.31 Body mass index [BMI] 31.0-31.9, adult; Z79.899 Other long term (current) drug therapy
CPT/HCPCS: 36415; 74177; 80048; 80076; 81001; 81025; 83690; 84134; 85025; 87070; 87073; 87086; 87205; 88304; 99285; C1713; J1100; J1170; J1885; J2405; J2543; J2795; Q9967

== ENCOUNTER → 2023-06-14 20:01 | Outpatient (BNV) | payer OTHER, SELFPAY | PROVIDERS: Admitting Provider Surgery; Emergency Provider Emergency Medicine; PCP Family Medicine; Visit Provider Surgery | DX: K35.80 Unspecified acute appendicitis (principal); M79.7 Fibromyalgia; I10 Essential (primary) hypertension; E66.9 Obesity, unspecified | CPT/HCPCS: 44970; 99024; 99233 ==

== ENCOUNTER 2025-07-12 11:58 | Outpatient (AMB) | payer OTHER, SELFPAY ==
--- OUTSIDE RECORDS SUMMARY | 2025-07-07 10:45 | XMS_ITS | Encounter Summary ---
Author Organization [facility] Address [address] [place] [address] Care Team Providers Care Fiscal Clerk Name Role Phone [facility] Primary Care Provider [phone] Reason for Referral * Medications - Denied Specialty Diagnoses / Procedures Referred By Contac t Referred To Contact Diagnoses Class 3 severe obesity due to excess calories with body mass index (BMI) of 40.0 to 44.9 in adult, unspecified whether serious comorbidity present (CMS/HCC V24, CMS/HCC V28) Majo Coronel MD [address] [place] [address] Phone: tel: fax: Referral ID Status Reason Start Date Expiration Date Visits Re quested Visits Authorized [id number] Denied 1 1 Reason for Visit * Reason Comments Follow-up 6 month Encounter Details Date Type Department Care Team (Late st Contact Info) Description 07/07/2025 10:45 AM EDT Office Visit Bariatric Surgery - [address] [place] [address] Majo Coronel MD [address] [place] [address] Class 3 severe obesity due to excess calories with body mass index (BMI) of 40.0 to 44.9 in adult, unspecified whether serious comorbidity present (CMS/HCC V24, [facility] V28) (Primary Dx) Social History Tobacco Use Types Packs/Day Years Used Date Smoking Tobacco: Former Cigarettes Smokeless Tobacco: Former Alcohol Use Standard Drinks/Week Comments Never 0 (1 standard drink = 0.6 oz pur e alcohol) Comments No Sex and Gender Information Value Date Recorded Sex Assigned at Female 01/25/2025 1:56 PM EDT Legal Sex Female 4:47 PM EST Gender Identity Female 01/25/2025 1:56 PM EDT Sexual Orientation Straight 01/25/2025 1: 56 PM EDT documented as of this encounter Last Filed Vital Signs Vital Sign Reading Time Taken Comments Blood Pressure 125/82 07/07/2025 10:50 AM EDT Pulse 75 07/07/2025 10:50 AM EDT Temperature 36.4 C (97.5 F) 07/07/2025 10:50 AM EDT Respiratory Rate - - Oxygen Saturation - - Inhaled Oxygen Concentration - - Weight 70.3 kg (155 lb) 07/07/2025 10:50 AM EDT Height 154.9 cm (5' 1 ) 07/07/2025 10:50 AM EDT Body Mass Index 29.29 07/07/2025 10:50 AM EDT documented in this encounter Ordered Prescriptions Prescription Sig Dispense Quantity Refills Last Filled Start Date End Date tirzepatide, weight loss, (Zepbound) 10 mg/0.5 mL injectionIndicatio ns:Class 3 severe obesity due to excess calories with body mass index (BMI) of 40.0 to 44.9 in adult, unspecified whether serious comorbidity present ([facility] V24, [facility] V28) Inject 0.5 mL (10 mg total) under the skin every 7 (seven) days. 2 mL 1 07/07/2025 5 phentermine 15 mg capsuleIndications :Class 3 severe obesity due to excess calories with body mass index (BMI) of 40.0 to 44.9 in adult, unspecified whether serious comorbidity present ([facility] V24, [facility] V28) Take 1 capsule (15 mg total) by mouth 1 (one) time each day before breakfast. Max Daily Amount: 15 mg 30 each 07/07/2025 5 documented in this encounter Progress Notes * Viriato M Homer, MD - 07/07/2025 10:45 AM EDT Ms. Latif is a 44 y.o. year old female who presents for surgical follow up regarding obesity. HPI: Ms. Latif Has been on tirzepatide, 7.5 mg. Nausea first day. Has lost 7 lbs since December. ROS: GENERAL: No malaise, significant unintentional weight loss, fever, chills or night sweats. HEENT: No changes in hearing or vision, no nose bleeds or other nasal problems. NECK: No lumps, goiter, pain or significant neck swelling RESPIRATORY: No cough, wheezing or shortness of breath CARDIOVASCULAR: No chest pain, leg swelling or palpitations. GI: No abdominal discomfort, nausea, vomiting, or change in bowel habits. : No dysuria, frequency or incontinence. SKIN: No lesions, rash or itching. HEMATOLOGY: No prolonged bleeding, easy bruisability. LYMPHOLOGY No swollen nodes. MUSCULOSKELETAL: No abnormalities. NEURO: No abnormalities. All other systems reviewed which are negative. PAST MEDICAL HISTORY: Patient Active Problem List Diagnosis Date Noted Date Diagnosed Degenerative disc disease, lumbar 03/01/2025 Anemia 07/30/2024 HTN (hypertension) 07/30/2024 Obesity (BMI 30-39.9) 07/30/2024 Fibromyalgia 02/18/2024 Peripheral neuropathy 02/18/2024 Seizure disorder ([facility] V24, [facility] V28) 07/02/2023 Anxiety 03/13/2023 PAST SURGICAL HISTORY: Past Surgical History: Procedure Laterality Date APPENDECTOMY PROCEDURE: HISTORICAL APPENDECTOMY BLADDER SURGERY PROCEDURE: HISTORICAL BLADDER SURGERY; COMMENT: ?Tumor excision BREAST REDUCTION PROCEDURE: MS BREAST REDUCTION CARPAL TUNNEL RELEASE Bilateral PROCEDURE: MS NEUROPLASTY &/TRANSPOS MEDIAN NRV CARPAL TUNNE; COMMENT: in 2009 SECTION PROCEDURE: HISTORICAL DELIVERY OTHER SURGICAL HISTORY PROCEDURE: HISTORICAL PANNICULECTOMY OTHER SURGICAL HISTORY 09/08/2015 PROCEDURE: MS MYOMECTOMY 1-4 MYOMAS W/250 GM/< ABDOMINAL APPR; COMMENT: Laparotomy, uterine myomectomy. Postop hemoperitoneum, reoperation. OTHER SURGICAL HISTORY Bilateral 06/26/2021 PROCEDURE: MS SALPINGECTOMY COMPLETE/PARTIAL UNI/BI SPX; COMMENT: Laparoscopic salpingectomy OTHER SURGICAL HISTORY 03/08/2024 PROCEDURE: MS LAPS TOTAL HYSTERECT 250 GM/< W/RMVL TUBE/OVARY; COMMENT: Robot assisted total laparoscopic hysterectomy. SOCIAL HISTORY: Social History Tobacco Use Smoking status: Former Types: Cigarettes Smokeless tobacco: Former Substance Use Topics Alcohol use: Never FAMILY HISTORY: Family History Problem Relation Name Age of Onset Breast cancer Maternal Grandmother Breast cancer Mother Uterine cancer Mother Other (Other: DM2) Father HTN Breast cancer Mother's side Maternal cousin. from breast cancer young age. Family Status Relation Name Status MGM (Not Specified) Mother (Not Specified) Father Alive Mother's jayant (Not Specified) No partnership data on file MEDICATIONS: Medications Discontinued During This Encounter Medication Reason tirzepatide, weight loss, (Zepbound) 7.5 mg/0.5 mL injection Alternate therapy ACTIVE MEDICATIONS: No outpatient medications have been marked as taking for the 07/07/25 encounter (Office Visit) with Majo Coronel MD. ALLERGIES: Allergies Allergen Reactions Kiwi Throat closes Kiwi (Actinidia Chinensis) Throat closes PHYSICAL EXAM: Visit Vitals BP 125/82 Pulse 75 Temp 36.4 ??C (97.5 ??F) (Temporal) Ht 1.549 m (61 ) Wt 70.3 kg (155 lb) BMI 29.29 kg/m?? OB Status Hysterectomy Smoking Status Former BSA 1.69 m?? APPEARANCE: Alert and oriented and in no acute distress EYES: Conjunctiva normal and sclera normal and anicteric. NECK: Neck supple with no adenopathy. LYMPH NODES: No gross cervical or clavicular lymphadenopathy. ABDOMEN: non-distended, EXTREMITIES: Extremities warm and well perfused without clubbing, cyanosis, or edema. SKIN: Skin color and texture normal. No rashes or lesions. NEUROLOGIC: Alert and oriented ??3. No motor or sensory deficits in the extremities. LABS/IMAGING: ASSESSMENT: 1. Class 3 severe obesity due to excess calories with body mass index (BMI) of 40.0 to 44.9 in adult, unspecified whether serious comorbidity present (CMS/HCC V24, CMS/HCC V28) PLAN: 1. Will continue with medication, 10 mg. The patient will let us know in few weeks if the medication is being effective or if the patient ishaving side effects. The dose will be adjusted depending upon the response and the presence of sideeffects. Follow-up in 4 months. documented in this encounter Plan of Treatment Upcoming Encounters Date Type Department Care Team (Late st Contact Info) Description 07/26/2025 5:10 PM EDT Appointment Radiology Department [address] [address] 12/29/2025 9:15 AM EST Office Visit Bariatric Surgery - [address] [place] [phone] Majo Coronel MD [address] [place] [phone] 01/09/2026 9:30 AM EDT Office Visit Internal Medicine - [facility] [address] [place] [address] Moses Cheema PA [address] [place] [address] documented as of this encounter Goals Goal Patient Goal Type Associated Problems Recent Progress Patient-Stated? Author PT LTGs General No Abelardo Duran, PT Note: Pt will report no right hip pain with stair management Pt will increase right hip strength to 5/5 Pt will increase right hip PROM to WNL Pt will be independent with HEP documented as of this encounter Visit Diagnoses Diagnosis Class 3 severe obesity due to excess calories with body mass index (BMI) of 40.0 to 44.9 in adult, unspecified whether serious comorbidity present (CMS/HCC V24, CMS/HCC V28)- Primary documented in this encounter Discontinued Medications Medication Sig Discontinue Reason Start Date End Da te tirzepatide, weight loss, (Zepbound) 7.5 mg/0.5 mL injectionIndications:Cla ss 1 obesity due to excess calories with body mass index (BMI) of 30.0 to 30.9 in adult, unspecified whether serious comorbidity present Inject 0.5 mL (7.5 mg total) under the skin every 7 (seven) days. Alternate therapy 06/01/2025 07/07/2025 phentermine 15 mg capsuleIndications:Class 3 severe obesity due to excess calories with body mass index (BMI) of 40.0 to 44.9 in adult, unspecified whether serious comorbidity present (CMS/[facility] V24, CMS/HCC V28) Take 1 capsule (15 mg total) by mouth 1 (one) time each day before breakfast. 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
--- OUTSIDE RECORDS SUMMARY | 2025-07-11 08:00 | XMS_ITS | Encounter Summary ---
Author Organization [facility] Address [address] [place] [address] Care Team Providers Care Forensic Chemist Name Role Phone Julissa Marquez MD Primary Care Provider [phone] Reason for Referral * Imaging (Routine) - Pending Review Specialty Diagnoses / Procedures Referred By Brendon lim Referred To Contact Radiology Diagnoses Thyroid nodule Procedures US Head Neck Soft Tissue Yuki Cheema PA [address] [place] [address] Phone: tel: fax: [address] Phone: tel: Referral ID Status Reason Start Date Expiration Date V isits Requested Visits Authorized [id number] Pending Review 07/11/2025 07/11/2026 1 1 Reason for Visit * Reason Comments Physical Exam Encounter Details Date Type Department Care Team (Late st Contact Info) Description 07/11/2025 8:00 AM EDT Office Visit Internal Medicine - [address] [phone] Yuki Cheema PA [address] [place] [address] Health maintenance examination (Primary Dx); Subacute cough; Thyroid nodule; Primary hypertension; Pneumonia of both lower lobes due to infectious organism Social History Tobacco Use Types Packs/Day Years Used Date Smoking Tobacco: Former Cigarettes Smokeless Tobacco: Former Tobacco Cessation:Counseling Given: Not Answered Alcohol Use Standard Drinks/Week Comments Never 0 (1 standard drink = 0.6 oz pur e alcohol) Housing Instability Answer Date Recorde d Are you worried that in the next 2 months you may not have stable housing? No 07/11/2025 Food Access & Nutrition Answer Date Rec orded Do you have access to a vari ety of food including fruits and vegetables? Yes 07/11/2025 Access to Healthcare Answer Date Record ed Within the last 3 months, ho w many times did you visit the emergency department for your medical care? 1 07/11/2025 Health Literacy Answer Date Recorded How often do you need to hav e someone help you when you read instructions, pamphlets, or other written material from your doctor or pharmacy? Sometimes 07/11/2025 Caregiver: How often do you need to have someone help you when you read instructions, pamphlets, or other written material from your doctor or pharmacy? Not on file 07/11/2025 Financial Risk Answer Date Recorded How hard is it for you to pa y for the very basics like food, housing, medical care, and air conditioning / heating? Somewhat hard 07/11/2025 Transportation Answer Date Recorded Has the lack of transportati on kept you from meetings, work, or from getting things needed for daily living? No Has the lack of transportati on kept you from medical appointments or from getting medications? No 07/11/2025 Social Isolation Answer Date Recorded How often do you feel lonely or isolated from th ose around you? Often 07/11/2025 Food Risk Answer Date Recorded Within the past 12 months we worried whether our food would run out before we got money to buy more. Never true 07/11/2025 Within the past 12 months th e food we bought just didn't last and we didn't have money to get more. Never true 07/11/2025 Dependent Care Answer Date Recorded Do you need help finding or paying for care for your loved ones. For example, exceptional children's teacher or elderly care for an older adult? No 07/11/2025 Education Answer Date Recorded Do you think completing more education or training, like finishing a GED, going to college, or learning a trade, would be helpful for you? Patient declined 07/11/2025 Employment and Income Answer Date Recor ded During the last four weeks, have you been actively looking for work? No 07/11/2025 Living Situation Answer Date Recorded What is your living situation? 0 07/11/2025 Comments No Sex and Gender Information Value Date Recorded Sex Assigned at Female 01/25/2025 1:56 PM EDT Legal Sex Female 4:47 PM EST Gender Identity Female 01/25/2025 1:56 PM EDT Sexual Orientation Straight 01/25/2025 1: 56 PM EDT documented as of this encounter Last Filed Vital Signs Vital Sign Reading Time Taken Comments Blood Pressure 138/82 07/11/2025 8:10 AM EDT Pulse 74 07/11/2025 8:10 AM EDT Temperature - - Respiratory Rate 16 07/11/2025 8:10 AM EDT Oxygen Saturation - - Inhaled Oxygen Concentration - - Weight 70.3 kg (155 lb) 07/11/2025 8:10 AM EDT Height - - Body Mass Index 29.29 07/07/2025 10:50 AM EDT documented in this encounter Ordered Prescriptions Prescription Sig Dispense Quantity Refills Last Filled Start Date End Date azithromycin (ZITHROMAX) 250 mg tablet Take 2 tablets (500 mg total) by mouth 1 (one) time each day for 1 day, THEN 1 tablet (250 mg total) 1 (one) time each day for 4 days. 6 each 07/12/2025 5 amoxicillin-clavul anate (AUGMENTIN) 875-125 mg per tablet Take 1 tablet by mouth 2 (two) times a day for 7 days. 14 each 07/12/2025 5 EPINEPHrine (EPIPEN) 0.3 mg/0.3 mL injection Inject 0.3 mL (0.3 mg total) into the thigh if needed for anaphylaxis. 1 each 2 07/11/2025 6 naproxen (NAPROSYN) 500 mg tablet Take 1 tablet (500 mg total) by mouth 2 (two) times a day with meals. 60 tablet 07/11/2025 gabapentin (NEURONTIN) 100 mg capsule Take 1 capsule (100 mg total) by mouth at bedtime. 30 each 2 07/11/2025 documented in this encounter Progress Notes * Yuki Cheema, RON - 07/11/2025 8:00 AM EDT Behavioral Health Clinics Clinics with multiple Locations in [facility]: (* accepts [facility]) [facility] ([facility])* Offers behavioral health and substance abuse treatment, offers crisis intervention 955-EDJ-FAUM ([phone]) Mental Health or Substance Abuse Crisis [phone] Website: [facility].org Offers telehealth Center [employer] ([facility])* Offers behavioral health and substance abuse treatment 5-138-ECT-HELP ([phone]) Website: chd.org Clinical Support Options ([facility])* Offers behavioral health and substance abuse treatment, offers crisis intervention Mental Health crisis: [phone] ([place]) [phone] ([place]) www.csoin.org Offers telehealth [facility]* Offers behavioral health and substance abuse treatment, bi-lingual ([place]) Website: www.[facility].org [facility]* Offers behavioral health services [phone] Www.[facility].org [facility]* Offers behavioral health services [phone] Multiple locations ([place], [place], [place], [place], [place]) www.servicenet.org Additional Behavioral Health Clinics by [facility]/Town: [place]: [facility] [address], [address] ext. 210 Website: Ahalogycare.net [place]: [facility]* [address] [facility] [address], [place] [phone] Website: Mobile Backstage [place]: [facility] Behavioral Health [address] [place], [place] [phone] [facility] Services [place]* [address], [address], [place], [place] [phone] Website: communitycocone [facility] [address], [place], [place] [phone] Website: www.[facility] centerThe Luxury Closetsamaritan hospitalProtective Systems [place]: [facility] Integrated Behavioral Health Services [address] [place], [place] [phone] [place]: [facility] [address] [place], [place] [phone] [place]: [facility] Behavioral Health Services [address] [place], [place] [phone] [place]: [facility] [address] [phone] [place]: [facility] Family [facility] Counsel[facility]* [address] [facility] [phone] Behavioral Health Resources for Seniors: [facility] [address] [place] [address] SHINE Program through the [place] on Aging* or call your local [facility] Insurance specific information for behavioral health: [employer]etna: www.aetnabehavioralhealth.com [facility]: www.LoopItfairfieldBetter ATM Services.org, or contact [phone] to find an in-senior network systems engineer Health [place]: [facility].org/behavioral-health [facility] ([facility]): This is a specific [facility] plan that has some private providers: www.Pycno.Meshify www.Travelzen.com.Meshify [facility] (manages mental health benefits for [facility], [facility] Navigator Plans, [facility] Indemnity, and sometimes other plans) Substance Abuse Treatment [facility] outpatient treatment center [address] [place] [address] [facility] for inpatient treatment [address] [place] [address] Website: [facility].Meshify Offers telehealth [facility] Outpatient drug and alcohol addiction treatment [address] [place] [address] [place] [phone] [place] [address], [address] [place] [address] [phone] www.RawportersInvarium.Meshify [facility] [address] [place], [place] [phone] [facility] Outpatient opioid treatment and residential program [address] [place] [address] Website: www.[facility].org [facility] Outpatient substance abuse treatment and in-patient detox [address] [facility] [place], [place] [phone] Website: www.[facility] Centers [facility] Substance Abuse Centers: Flexible Nanny for all centers is Nancy [phone] at extension [phone] [place], [place] [address] [place], [place] * RON Lombardo - 07/11/2025 8:00 AM EDTAddended by: YUKI CHEEMA on: 07/12/2025 10:43 AM Modules accepted: Orders * RON Lombardo - 07/11/2025 8:00 AM EDT CHIEF COMPLAINT: Physical Exam IDENTIFIER:Catalina Latif is a 44 y.o. here today for evaluation of general medical health HPI: Catalina Latif is here today for routine physical exam. History of seizure disorder, peripheralneuropathy, fibromyalgia, interstitial cystitis, HTN, GERD, TIMOTEO, MDD. Denies recent hospitalizations or surgeries. No regular exercise. Diet is well balanced. UTD with dental, credit analysis manager. Due for eye. Complaining of dry cough, chills. Cough ongoing for about a month but chills last few days. Also reports dizziness. Overweight: Zepbound 10 mg weekly. Following with weight management. HTN: Amlodipine 5 mg daily, lisinopril 20 mg daily. Fibromyalgia/peripheral neuropathy: Gabapentin 100 mg nightly as needed, naproxen 500 mg twice daily. ROS: GENERAL: No malaise, significant weight loss or fever HEENT: No changes in hearing or vision, nose bleeds or other nasal problems NECK: No lumps, goiter, pain or significant neck swelling RESPIRATORY: No cough, wheezing or shortness of breath CARDIOVASCULAR: No chest pain, leg swelling or palpitations BREAST: no lumps, discharge, pain or change in skin GI: No abdominal discomfort, blood in stools or black stools : No dysuria, frequency or incontinence WARD SECRETARY: No abnormal vaginal bleeding or abnormal vaginal discharge. MUSCULOSKELETAL: No joint pain or swelling, back pain, or muscle pain. SKIN: No lesions, rash or itching PSYCH: No sleep disturbance, mood disorder or recent psychosocial stressors. HEMATOLOGY/LYMPHOLOGY No prolonged bleeding, easy bruisability or swollen nodes ENDOCRINE: No cold or heat intolerance, polyuria, polydipsia or goiter. 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 V24, [facility] V28) 07/02/2023 Anxiety 03/13/2023 GERD (gastroesophageal reflux disease) 02/28/2015 PAST SURGICAL HISTORY: Past Surgical History: Procedure Laterality Date APPENDECTOMY PROCEDURE: HISTORICAL APPENDECTOMY BLADDER SURGERY PROCEDURE: HISTORICAL BLADDER SURGERY; COMMENT: ?Tumor excision BREAST REDUCTION PROCEDURE: NE BREAST REDUCTION CARPAL TUNNEL RELEASE Bilateral PROCEDURE: NE NEUROPLASTY &/TRANSPOS MEDIAN NRV CARPAL TUNNE; COMMENT: in 2009 SECTION PROCEDURE: HISTORICAL DELIVERY OTHER SURGICAL HISTORY PROCEDURE: HISTORICAL PANNICULECTOMY OTHER SURGICAL HISTORY 09/08/2015 PROCEDURE: NE MYOMECTOMY 1-4 MYOMAS W/250 GM/< ABDOMINAL APPR; COMMENT: Laparotomy, uterine myomectomy. Postop hemoperitoneum, reoperation. OTHER SURGICAL HISTORY Bilateral 06/26/2021 PROCEDURE: NE SALPINGECTOMY COMPLETE/PARTIAL UNI/BI SPX; COMMENT: Laparoscopic salpingectomy OTHER SURGICAL HISTORY 03/08/2024 PROCEDURE: NE LAPS TOTAL HYSTERECT 250 GM/< W/RMVL TUBE/OVARY; COMMENT: Robot assisted total laparoscopic hysterectomy. IMMUNIZATIONS/INJECTIONS: Most Recent Immunizations Administered Date(s) Administered Influenza Quadravalent, MDCK, 0.5ml, preservative free (Flucelvax) 6mo and older 10/11/2021 HEALTH MAINTENANCE: Health Maintenance Topic Date Due Breast Cancer Screening Never done DTaP,Tdap,and Td Vaccines (1 - Tdap) Never done Hepatitis B Vaccines (1 of 3 - 19+ 3-dose series) Never done Cervical Cancer Screening: Pap Smear Never done Social Influencers of Health Screening Never done Depression Screening 10/27/2024 COVID-19 Vaccine ( - 2023- season) Never done Influenza Vaccine (1) 06/27/2025 Hypertension/CHF/CAD Annual BMP Blood Test 01/13/2026 Cholesterol Screening (Lipid Panel) 06/25/2029 Colorectal Cancer Screening: Colonoscopy 08/27/2034 HIB Vaccines Aged Out IPV Vaccines Aged Out Hepatitis A Vaccines Aged Out MMR Vaccines Aged Out Varicella Vaccines Aged Out Meningococcal ACWY Vaccine Aged Out Meningococcal B Vaccine Aged Out HPV Vaccines Aged Out Pneumococcal Vaccine: Pediatrics (0 to 5 Years) and At-Risk Patients (6 to 49 Years) Aged Out RSV Immunization Patients Under 20 months Aged Out HIV Screening Discontinued Hepatitis C Screening Discontinued SOCIAL HISTORY: Social History Tobacco Use Smoking status: Former Types: Cigarettes Smokeless tobacco: Former Substance Use Topics Alcohol use: Never FAMILY HISTORY: Family History Problem Relation Name Age of Onset Breast cancer Maternal Grandmother Breast cancer Mother Uterine cancer Mother Other (Other: DM2) Father HTN Breast cancer Mother's side Maternal cousin. from breast cancer young age. ACTIVE MEDICATIONS: Outpatient Medications Marked as Taking for the 07/11/25 encounter (Office Visit) with RON Lopez Medication Sig Dispense Refill acetaminophen (TYLENOL) 500 mg tablet Take 2 tablets (1,000 mg total) by mouth every 8 (eight) hours if needed. as directed for 30 days amLODIPine (NORVASC) 5 mg tablet Take 1 tablet (5 mg total) by mouth 1 (one) time each day. 90 tablet 1 baclofen (LIORESAL) 10 mg tablet Take 1 tablet (10 mg total) by mouth if needed. diclofenac (VOLTAREN) 1 % topical gel Apply 1 g topically 3 (three) times a day. 90 g 2 dicyclomine (BENTYL) 10 mg capsule TAKE 1 CAPSULE (10 MG TOTAL) BY MOUTH 3 (THREE) TIMES A DAY IF NEEDED (ABDOMINAL PAIN). 90 capsule 3 Excedrin Extra Strength 250-250-65 mg per tablet Take 1 tablet by mouth every 6 (six) hours if needed for headaches. gabapentin (NEURONTIN) 100 mg capsule Take 1 capsule (100 mg total) by mouth at bedtime. 30 each 2 lamoTRIgine (LaMICtal) 50 mg dispersible tablet Take 2 tablets (100 mg total) by mouth 2 (two) times a day. lisinopriL (PRINIVIL,ZESTRIL) 20 mg tablet Take 1 tablet (20 mg total) by mouth 1 (one) time each day. 90 each 1 naproxen (NAPROSYN) 500 mg tablet Take 1 tablet (500 mg total) by mouth 2 (two) times a day with meals. 60 tablet 0 omeprazole (PriLOSEC) [address] capsule TAKE 1 CAPSULE BY MOUTH TWICE A DAY 180 capsule 1 SUMAtriptan (IMITREX) 50 mg tablet Take 1 tablet (50 mg total) by mouth 1 (one) time if needed for migraine. 9 tablet 2 tirzepatide, weight loss, (Zepbound) 10 mg/0.5 mL injection Inject 0.5 mL (10 mg total) under the skin every 7 (seven) days. 2 mL 1 [DISCONTINUED] gabapentin (NEURONTIN) 100 mg capsule Take 1 capsule (100 mg total) by mouth at bedtime. 30 each 2 [DISCONTINUED] naproxen (NAPROSYN) 500 mg tablet Take 1 tablet (500 mg total) by mouth 2 (two) times a day with meals. 60 tablet 0 ALLERGIES: @ALL@ PHYSICAL EXAM: Visit Vitals BP 138/82 Pulse 74 Resp 16 Wt 70.3 kg (155 lb) BMI 29.29 kg/m?? OB Status Hysterectomy Smoking Status Former BSA 1.69 m?? Body mass index is 29.29 kg/m??. APPEARANCE: Alert and in no acute distress EYES: PERRLA, conjunctiva and sclera normal. EARS: External ears normal. Canals clear. TMs normal. NOSE/SINUS: Nares normal. Septum midline. Mucosa normal. No drainage or sinus tenderness. THROAT: no erythema or exudates NECK: Neck supple, no adenopathy, thyroid symmetric and of normal size HEART: RRR with normal S1 and S2 ,no murmurs, no gallops, no JVD appreciated LUNG: clear to auscultation BREAST (FEMALE): Deferred to credit analysis manager LYMPH NODES: grossly normal ABDOMEN: Bowel sounds normoactive, no bruits, soft, non-tender, without organomegaly or palpable masses WARD SECRETARY (FEMALE): Deferred to credit analysis manager BACK: No pain to palpation with good flexion and extension EXTREMITIES: Extremities warm and well perfused without clubbing, cyanosis, or edema NEURO: Awake, alert and oriented x 3 with symmetrical reflexes SKIN: Skin color, texture, turgor normal. No rashes or lesions. IMPRESSION: 1. Health maintenance examination 2. Subacute cough 3. Thyroid nodule 4. Primary hypertension PLAN: Physical exam: Patient presented for evaluation of general health. As part of this visit, we reviewed the following issues which are considered an essential part of preventative health in this age group. - Breast cancer screening for high risk individuals - pending - Colon cancer screening starting at age 45 (colonoscopy every 10 years/annual FOBT plus flexi sigmoidoscopy every 5 years/double-contrast BE every 5 years/Cologuard every 3 years/Annual FOBT) - up to date - Cervical cancer testing every 1-3 years - advised to discuss with credit analysis manager - Blood pressure annual screening performed - Cholesterol screening every five years - up to date - Osteoporosis prevention including calcium/vitamin D intake, weight bearing exercise & smokingcessation - Nutritional and exercise counseling - patient advised to pursue at least 30 minutes of exercise most days of the week, limit portion sizes, eat breakfast, and avoid eating after dinner - Counseling of injury prevention including fire prevention, smoke alarms and seat belt usage - Screening for depression - over the past TWO WEEKS, been bothered by little INTEREST or PLEASURE in doing things or by feeling DOWN, DEPRESSED, or HOPELESS? No - Screening for domestic abuse - Recommendations about immunizations - patient deferred today - Recommendation of an eye exam for glaucoma every 2-4 years in this age range - patient will self-refer - Preconception counseling - see Substance & Sexuality section of medical record - Screening for substance abuse (including tobacco, alcohol, and recreational drugs) - see Substance & Sexuality section of medical record - Genetic cancer risk screening - NO INDICATION: Hereditary Cancer Syndrome Risk Assessment completed and evaluated. No indication found for genetic testing at this time. - In addition to reviewing these issues, I have reviewed the following sections of the chart: Past Medical History, Social History, and Social History - Did you have a dental visit in the last 12 months? Yes - Did you have a dental problem in the last 6 months? No I reviewed the past medical, surgical, family and social history with the patient.Cough: Ongoing for months with chills, dizziness. Will check x-ray for pneumonia. Thyroid nodules: Check US and tsh. Otherwise continue medications as prescribed. Check labs. Orders Placed This Encounter Procedures XR Chest 2 Views US Head Neck Soft Tissue CBC and differential Comprehensive metabolic panel Thyroid stimulating hormone with reflex to free t4 and free t3 ADDITIONAL ORDERS: US HEAD NECK SOFT TISSUE We have discussed the above medication(s) at length. I have explained the indications as well as common side effects and risks. The patient understands and accepts these risks and wishes to proceed with the pharmacological treatment. All of the patient's questions were answered at this time. Pt voices understanding and is in agreement with the above plan. Symptoms and/or concerns that should warrant emergency evaluation/treatment have been discussed. Follow up evaluation will be based upon the plan as stated. If any questions should arise in the interim/future please contact the officefor assistance. Today's documentation was made using voice recognition software.This note may contain grammatical errors secondary to this software. RON Lombardo on 07/11/2025 at 9:00 AM EDT documented in this encounter Plan of Treatment Upcoming Encounters Date Type Department Care Team (Late st Contact Info) Description 07/26/2025 5:10 PM EDT Appointment Radiology Department [address] [phone] 12/29/2025 9:15 AM EST Office Visit Bariatric Surgery - [address] [place] [id number] Majo Coronel MD [address] [place] [phone] 01/09/2026 9:30 AM EDT Office Visit Internal Medicine - [address] [phone] Yuki Cheema PA [address] [place] [phone] Pending Results Name Type Priority Associated Diagnoses Date /Time US Head Neck Soft Tissue Imaging Routine Thyroid nodule 07/12/2025 10:09 AM EDT Scheduled Orders Name Type Priority Associated Diagnoses Orde r Schedule US Head Neck Soft Tissue Imaging Routine Thyroid nodule Expected: 07/11/2025, Expires: 07/11/2026 XR Chest 2 Views Imaging Routine Pneumonia of both lower lobes due to infectious organism Expected: 07/12/2025, Expires: 07/12/2026 documented as of this encounter Goals Goal Patient Goal Type Associated Problems Recent Progress Patient-Stated? Author PT LTGs General No Abelardo Duran, PT Note: Pt will report no right hip pain with stair management Pt will increase right hip strength to 5/5 Pt will increase right hip PROM to WNL Pt will be independent with HEP documented as of this encounter Results * Thyroid stimulating hormone with reflex to free t4 and free t3 (07/11/2025 8:56 AM EDT) [facility] TSH 0.53 0.40 - 4.00 mcIU/mL LAB CHEMISTRY METHOD 07/11/2025 3:51 PM EDT [facility] Blood Venous blood specimen / Unknown Venipuncture / Unknown 07/11/2025 8:56 AM EDT 07/11/2025 8:56 AM EDT Yuki VELASQUEZ LAB BLOOD ORDERABLES Fi nal Result [facility] [address] [place] [address], * Comprehensive metabolic panel (07/11/2025 8:56 AM EDT) [facility] Sodium 139 133 - 145 mmol/L LAB CHEMISTRY METHOD 07/11/2025 2:38 PM EDT [facility] Potassium 4.4 3.5 - 5.5 mmol/L LAB CHEMISTRY METHOD 07/11/2025 2:38 PM EDT [facility] Chloride 107 96 - 110 mmol/L LAB CHEMISTRY METHOD 07/11/2025 2:38 PM [facility] CO2 25 21 - 32 mmol/L LAB CHEMISTRY METHOD 07/11/2025 2:38 PM [facility] Anion Gap 7 3 - 11 LAB CHEMISTRY METHOD 07/11/2025 2:38 PM [facility] Glucose 91 70 - 100 mg/dL LAB CHEMISTRY METHOD 07/11/2025 2:38 PM [facility] BUN 11 5 - 25 mg/dL LAB CHEMISTRY METHOD 07/11/2025 2:38 PM [facility] Creatinine 0.63 0.50 - 1.10 mg/dL LAB CHEMISTRY METHOD 07/11/2025 2:38 PM [facility] eGFR 112 >=60 mL/min/1. 73m2 LAB CHEMISTRY METHOD 07/11/2025 2:38 PM [facility] Comment:Calculation based on the Chronic Kidney Disease Epidemiology Collaboration (CKD-EPI) equation refit without adjustment for race. BUN/Creatinine Ratio 17.5 LAB CHEMISTRY METHOD 07/11/2025 2:38 PM [facility] Calcium 9.1 8.5 - 10.5 mg/dL LAB CHEMISTRY METHOD 07/11/2025 2:38 PM [facility] AST (SGOT) 14 10 - 42 unit/L LAB CHEMISTRY METHOD 07/11/2025 2:38 PM [facility] ALT (SGPT) 19 10 - 60 unit/L LAB CHEMISTRY METHOD 07/11/2025 2:38 PM [facility] Alkaline Phosphatase 75 42 - 121 unit/L LAB CHEMISTRY METHOD 07/11/2025 2:38 PM [facility] Total Protein 7.3 6.0 - 8.0 g/dL LAB CHEMISTRY METHOD 07/11/2025 2:38 PM [facility] Albumin 4.1 3.2 - 5.0 g/dL LAB CHEMISTRY METHOD 07/11/2025 2:38 PM EDT [facility] Total Bilirubin 0.9 0.0 - 1.4 mg/dL LAB CHEMISTRY METHOD 07/11/2025 2:38 PM EDT [facility] Blood Venous blood specimen / Unknown Venipuncture / Unknown 07/11/2025 8:56 AM EDT 07/11/2025 8:56 AM EDT us Yuki VELASQUEZ LAB BLOOD ORDERABLES Fi nal Result [facility] [address] [place] [address], [place] [phone] * XR Chest 2 Views (07/11/2025 8:48 AM EDT) Anatomical Region Laterality Modality Body Radiographic Toña ging 07/11/2025 10:5 5 AM EDT Narrative 07/11/2025 10:56 AM EDT Chest, 2 views. History cough. There is suboptimal inspiration. There is possible bibasilar small patchy infiltrates. There is no pneumothorax, pleural effusions or congestive heart failure. CONCLUSIONS: Limited examination due to poor respiration. Suggestion of bibasilar patchy infiltrates. -------- FINAL REPORT -------- Dictated By: Luli Lombardo Dictated Date: 07/11/2025 10:55 ET Assigned Physician: Luli Lombardo Reviewed and Electronically Signed By: Luli Lombardo Signed Date: 07/11/2025 10:56 ET Workstation ID: [id number] Transcribed By: Self Edit Transcribed Date: 07/11/2025 10:55 ET Procedure Note Luli Lombardo MD - 07/11/2025 Chest, 2 views. History cough. There is suboptimal inspiration. There is possible bibasilar small patchyinfiltrates. There is no pneumothorax, pleural effusions or congestiveheart failure. CONCLUSIONS: Limited examination due to poor respiration. Suggestion ofbibasilar patchy infiltrates. -------- FINAL REPORT -------- Dictated By: Luli Lombardo Dictated Date: 07/11/2025 10:55 ET Assigned Physician: Luli Lombardo Reviewed and Electronically Signed By: Luli Lombardo Signed Date: 07/11/2025 10:56 ET Workstation ID: [id number] Transcribed By: Self Edit Transcribed Date: 07/11/2025 10:55 ET Yuki VELASQUEZ IMG XR PROCEDURES Final Result documented in this encounter Visit Diagnoses Diagnosis Health maintenance examination- Primary Unspecified general medical examination Subacute cough Thyroid nodule Nontoxic uninodular goiter Primary hypertension Unspecified essential hypertension Pneumonia of both lower lobes due to infectious organism Subacute cough documented in this encounter Discontinued Medications Medication Sig Discontinue Reason Start Date End Da te gabapentin (NEURONTIN) 100 mg capsule Take 1 capsule (100 mg total) by mouth at bedtime. Reorder 03/01/2025 07/11/2025 naproxen (NAPROSYN) 500 mg tablet Take 1 tablet (500 mg total) by mouth 2 (two) times a day with meals. Reorder 03/14/2025 07/11/2025 ferrous sulfate 325 mg (65 mg elemental iron) tablet Take 1 tablet (325 mg total) by mouth every other day. 07/11/2025 documented as of this encounter Additional Health Concerns Infection Onset Date Last Indicated Resolved Time Enteroaggregative E. coli (EAEC) 01/14/2025 01/15/20 documented as of this encounter Care Teams Forensic Chemist Relationship Specialty Start Date End Date Julissa Marquez MD [address] [place] [address] PCP - General Internal Medicine 07/11/25 documented as of this encounter
--- OUTSIDE RECORDS SUMMARY | 2025-07-11 08:41 | XMS_ITS | Encounter Summary ---
Author Organization [facility] Address [address] [place] [address] Care Team Providers Care Oracle Developer Name Role Phone Julissa Marquez MD Primary Care Provider [phone] Encounter Details Date Type Department Care Team (Latest Contact Info) Description 07/11/2025 8:41 AM EDT - 07/11/2025 11:59 PM EDT Hospital Encounter Xray - [facility] [address] [place] [address] Subacute cough Discharge Disposition: Home or Self Care Social History Tobacco Use Types Packs/Day Years [...] care for your loved ones. For example, child care giver or elderly care for an older adult? [...] PM EDT documented as of this encounter Medications at Time of Discharge acetaminophen (TYLENOL) 500 mg tablet Take 2 tablets (1,000 mg total) by mouth every 8 (eight) hours if needed. as directed for 30 days 03/08/2024 amLODIPine (NORVASC) 5 mg tabletIndications: Essential (primary) hypertension Take 1 tablet (5 mg total) by mouth 1 (one) time each day. 90 tablet 1 05/30/2025 amoxicillin-clavul anate (AUGMENTIN) 875-125 mg per tablet Take 1 tablet by mouth 2 (two) times a day for 7 days. 14 each 07/12/2025 5 azithromycin (ZITHROMAX) 250 mg tablet Take 2 tablets (500 mg total) by mouth 1 (one) time each day for 1 day, THEN 1 tablet (250 mg total) 1 (one) time each day for 4 days. 6 each 07/12/2025 5 baclofen (LIORESAL) 10 mg tablet Take 1 tablet (10 mg total) by mouth if needed. 02/03/2024 diclofenac (VOLTAREN) 1 % topical gel Apply 1 g topically 3 (three) times a day. 90 g 2 03/18/2025 dicyclomine (BENTYL) 10 mg capsule TAKE 1 CAPSULE (10 MG TOTAL) BY MOUTH 3 (THREE) TIMES A DAY IF NEEDED (ABDOMINAL PAIN). 90 capsule 3 04/13/2025 EPINEPHrine (EPIPEN) 0.3 mg/0.3 mL injection Inject 0.3 mL (0.3 mg total) into the thigh if needed for anaphylaxis. 1 each 2 07/11/2025 6 Excedrin Extra Strength 250-250-65 mg per tablet Take 1 tablet by mouth every 6 (six) hours if needed for headaches. gabapentin (NEURONTIN) 100 mg capsule Take 1 capsule (100 mg total) by mouth at bedtime. 30 each 2 07/11/2025 5 lamoTRIgine (LaMICtal) 50 mg dispersible tablet Take 2 tablets (100 mg total) by mouth 2 (two) times a day. lisinopriL (PRINIVIL,ZESTRIL) 20 mg tablet Take 1 tablet (20 mg total) by mouth 1 (one) time each day. 90 each 1 05/30/2025 6 naproxen (NAPROSYN) 500 mg tablet Take 1 tablet (500 mg total) by mouth 2 (two) times a day with meals. 60 tablet 07/11/2025 omeprazole (PriLOSEC) [address] capsule TAKE 1 CAPSULE BY MOUTH TWICE A DAY 180 capsule 1 03/29/2025 tirzepatide, weight loss, (Zepbound) 10 mg/0.5 mL injectionIndicatio ns:Class 3 severe obesity due to excess calories with body mass index (BMI) of 40.0 to 44.9 in adult, unspecified whether serious comorbidity present (CMS/[facility] V24, CMS/HCC V28) Inject 0.5 mL (10 mg total) under the skin every 7 (seven) days. 2 mL 1 07/07/2025 documented as of this encounter Discharge Disposition Disposition Code Departure Means Destination Home or Self Care documented in this encounter Plan of Treatment Upcoming Encounters Date Type Department Care Team (Late st Contact Info) Description 07/26/2025 5:10 PM EDT Appointment Radiology Department [address] [phone] 12/29/2025 9:15 AM EST Office Visit Bariatric Surgery - [address] [place] [phone] Majo Coronel MD [address] [place] [phone] 01/09/2026 9:30 AM EDT Office Visit Internal Medicine - [facility] [address] [place] [phone] Moses Cheema PA [address] [place] [address] documented as of this encounter Goals Goal Patient Goal Type Associated Problems Recent Progress Patient-Stated? Author PT LTGs General No Abelardo Duran, PT Note: Pt will report no right hip pain with stair management Pt will increase right hip strength to 5/5 Pt will increase right hip PROM to WNL Pt will be independent with HEP documented as of this encounter Procedures Procedure Name Priority Date/Time Associated Diagnosis Comments XR CHEST 2 VIEWS Routine 07/11/2025 8:48 AM EDT Subacute cough documented in this encounter Results * XR Chest 2 Views (07/11/2025 8:48 [...] Signed Date: 07/11/2025 10:56 ET Workstation ID: [id number] Transcribed By: Self Edit Transcribed Date: 07/11/2025 [...] Signed Date: 07/11/2025 10:56 ET Workstation ID: [id number] Transcribed By: Self Edit Transcribed Date: 07/11/2025 10:55 ET Moses VELASQUEZ IMG XR PROCEDURES Final Result documented in this encounter Visit Diagnoses Diagnosis Subacute cough documented in this encounter Additional Health Concerns Infection Onset Date Last Indicated Resolved Time Enteroaggregative E. coli (EAEC) 01/14/2025 01/15/20 25 documented as of this encounter Care Teams Oracle Developer Relationship Specialty Start Date End Date Julissa Marquez MD [address] [place] [address] PCP - General Internal Medicine 07/11/25 documented as of this encounter
--- OUTSIDE RECORDS SUMMARY | 2025-07-12 09:35 | XMS_ITS | Encounter Summary ---
Author Organization [facility] Address [address] [place] [address] Care Team Providers Care Space Controller Name Role Phone Julissa Marquez MD Primary Care Provider Reason for Referral * Imaging (Routine) - Pending Review Specialty Diagnoses / Procedures Referred By Brendon lim Referred To Contact Radiology Diagnoses Thyroid nodule Procedures US Head Neck Soft Tissue Moses Cheema PA [address] [place], [place] Phone: tel: fax: [facility] [address] [facility] Phone: tel: Referral ID Status Reason Start Date Expiration Date V isits Requested Visits Authorized [id number] Pending Review 07/11/2025 07/11/2026 1 1 Reason for Visit * Imaging (Routine) - Pending Review Specialty Diagnoses / Procedures Referred By Contac t Referred To Contact Radiology Diagnoses Thyroid nodule Procedures US Head Neck Soft Tissue Moses Cheema PA [address] [facility] [place] Phone: tel: fax: [facility] [address] Phone: tel: Referral ID Status Reason Start Date Expiration Date V isits Requested Visits Authorized [id number] Pending Review 07/11/2025 07/11/2026 1 1 Encounter Details Date Type Department Care Team (Latest Contact Info) Description 07/12/2025 9:35 AM EDT Hospital Encounter Ultrasound - [facility] [address] [place] [phone] Thyroid nodule Social History Tobacco Use Types Packs/Day Years [...] for your loved ones. For example, child monitor or elderly care for an older adult? [...] PM EDT documented as of this encounter Plan of Treatment Upcoming Encounters Date Type Department Care Team (Late st Contact Info) Description 07/26/2025 5:10 PM EDT Appointment Radiology Department [address] [phone] 12/29/2025 9:15 AM EST Office Visit Bariatric Surgery - [address] [place] [address] Majo Coronel MD [address] [place] [phone] 01/09/2026 9:30 AM EDT Office Visit Internal Medicine - [facility] [address] [place] [address] Moses Cheema PA [address] [place] [address] Pending Results Name Type Priority Associated Diagnoses Date /Time US Head Neck Soft Tissue Imaging Routine Thyroid nodule 07/12/2025 10:09 AM EDT Scheduled Orders Name Type Priority Associated Diagnoses Orde r Schedule US Head Neck Soft Tissue Imaging Routine Thyroid nodule Once for 1 Occurrences starting 07/12/2025 until 07/12/2025 documented as of this encounter Goals Goal Patient Goal Type Associated Problems Recent Progress Patient-Stated? Author PT LTGs General No Abelardo Duran PT Note: Pt will report no right hip pain with stair management Pt will increase right hip strength to 5/5 Pt will increase right hip PROM to WNL Pt will be independent with HEP documented as of this encounter Visit Diagnoses Diagnosis Thyroid nodule Nontoxic uninodular goiter documented in this encounter Additional Health Concerns Infection Onset Date Last Indicated Resolved Time Enteroaggregative E. coli (EAEC) 01/14/2025 01/15/20 documented as of this encounter Care Teams Space Controller Relationship Specialty Start Date End Date Julissa Marquez MD [address] [place] [address] PCP - General Internal Medicine 07/11/25 documented as of this encounter
--- NOTE | 2025-07-12 12:07 | MHC.OFFVIS ---
Intake Visit Reasons: Last seen Dr Baeza 07/21/23 Accompanied by: Daughter Allergies kiwi (Kiwi (Actinidia Chinensis)) Allergy (Mild, Verified 07/12/25 12:13) THROAT SWELLING Medication List - Last Reconciled 07/12/25 by Mely Murcia CNP amlodipine 5 mg PO DAILY diclofenac sodium 1% topical dicyclomine 10 mg PO TID PRN duloxetine 30 mg PO ONCE gabapentin mg PO hydroxyzine HCl 10 mg PO BEDTIME PRN lamotrigine 50 mg PO BID lisinopril 20 mg PO DAILY meclizine 25 mg PO TID PRN naproxen 500 mg PO BID norelgestromin-ethin.estradiol 150-35 mcg/24 hr (Xulane) 1 patch topical QWEEK omeprazole 40 mg PO BID ondansetron 4 mg PO TID PRN oxybutynin chloride ER 10 mg PO BEDTIME oxycodone 5 mg PO Q4H PRN sumatriptan succinate 50 mg PO ONCE PRN tirzepatide (weight loss) (Zepbound) mg subcut HPI Comments Details: 44-year-old RH woman with diagnosis of fibromyalgia following with business intelligence etl developer and HTN who for some reason had a test for spinal muscle atrophy in 2020, which showed positivity for SMA, with two copies of the SMN1 gene. She was treated for migraine and complex partial seizure disorder causing episodes of sudden anxiety, dizziness, and spaciness, like trying to find out where she exactly is. She returns after nearly 24 months. She was having a lot of brain fog. She was having episodes of spaciness for few seconds up to a minute, and feels tired afterward. She was having more trouble focusing and retaining information. She feels more drained. She sometimes forgets where she is going when driving. She was taking lamotrigine 50mg twice a day, no missed doses. She was getting few headaches that were relieved with sumatriptan. She was sleeping about 4-5 hours/night. Mood was up and down. She was in the process of looking for new therapist as her previous therapist left the practice. [facility] Medical History Delivery with history of Surgical History Hx of breast reduction, elective Hx of carpal tunnel repair Hx of foot surgery Hx of hand surgery Hx of tubal ligation S/P panniculectomy Family History Mother Arthritis Diabetes Hypertension Depression Anxiety Father Diabetes Hypertension Son No problems noted. Son Heart murmur Daughter No problems noted. Social History Alcohol intake: never Patient Tobacco Use Status: Never used Tobacco Substance Use Type: Marijuana Review of Systems Const Denies chills, Denies daytime sleepiness, Reports difficulty sleeping, Denies fatigue, Denies fever(s), Denies frequent falls, Reports headache(s), Denies increased appetite, Denies poor appetite, Denies snoring, Denies weakness, Denies weight gain and Denies weight loss Eyes Denies loss of vision ENT Denies vertigo, Denies dizziness and Reports headache(s) Card Denies chest pain at rest, Denies chest pain with activity, Denies syncope, Denies leg edema and Denies palpitations Resp Denies snoring GI Denies constipation, Denies heartburn, Denies diarrhea and Denies nausea Denies urinary frequency, Denies urinary incontinence and Denies urinary urgency Musc Denies abnormal gait, Denies numbness and Denies tingling Skin/Breast Denies dry skin and Denies rash Neuro Denies abnormal gait, Denies vertigo, Denies dizziness, Denies syncope, Denies frequent falls, Reports headache(s), Denies lack of coordination, Denies loss of vision, Denies memory loss, Denies numbness, Denies restless legs, Denies seizure-like activity, Denies tingling, Denies paresthesias, Denies tremor(s) and Denies weakness Psych Reports anxiety, Denies depression, Denies auditory hallucinations, Denies memory loss, Denies visual hallucinations and Denies suicidal ideation Endo Denies fatigue and Denies palpitations Physical Exam Const Other: General Appearance:? normal, in no acute distress. Skin:? no rashes, no significant birthmarks. Heart:? S1, S2 normal, no murmurs. Lungs:? clear anteriorly and posteriorly. Extremities:? no edema. Psych:? alert, oriented, cognitive function intact, cooperative with exam. Neuro Other: Mental Status:?Normal attention, orientation, memory and flat affect.? Cranial Nerves:?Pupils are equal, round and reactive to light. External occular muscles are intact. Visual perez are full. Face is symmetrical. Facial sensations are normal. Tongue is midline. Palate elevates symmetrically. Shoulder shrugging is normal. Hearing to bedside conversation is normal. Coordination:?No ataxia,?no titubation.? Gait Exam: Within normal limits. Extrapyramidal System:?No tremor, rigidity with normal facial expressions.? Pronator Drift:?Not present.? Involuntary Movements:?No tremors seen.? Speech:?Normal.? 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 Otherwise no significant abnormality. 12/05/22. SMA gene test at [facility] in 2020: + with two copies of SMA1 gene CT brain WO at [facility] in 2020: OK. Assessment & Plan Assessment & Plan (1) Complex partial seizure: Code(s): G40.209 - Localization-related (focal) (partial) symptomatic epilepsy and epileptic syndromes with complex partial seizures, not intractable, without status epilepticus Category: Medical Plan: EEG ordered. Continue lamotrigine 25mg 2 tablets twice a day. (2) Migraine: Code(s): G43.909 - Migraine, unspecified, not intractable, without status migrainosus Category: Medical Qualifiers: Migraine type: unspecified Status migrainosus presence: without status migrainosus Intractability: not intractable Qualified Code(s): G43.909 - Migraine, unspecified, not intractable, without status migrainosus Plan: Continue sumatriptan 50mg 1 tablet as needed for migraine. (3) Insomnia: Code(s): G47.00 - Insomnia, unspecified Category: Medical Qualifiers: Insomnia type: unspecified Qualified Code(s): G47.00 - Insomnia, unspecified Plan: May try melatonin at bedtime for sleep. She was on trazodone in the past which helped. (4) Anxiety: Code(s): F41.9 - Anxiety disorder, unspecified Category: Medical (5) Spinal muscular atrophy: Code(s): G12.9 - Spinal muscular atrophy, unspecified Category: Medical Plan Meds tried: Fioricet, sumatriptan, lamotrigine Orders: Orders EEG electroencephalogram Today G40.209 - Localization-related (focal) (partial) symptomatic epilepsy and epileptic syndromes with complex partial seizures, not intractable, without status epilepticus Medications: New melatonin 3 mg PO BEDTIME PRN 30 tabs 2RF sleep 30 days Changed From lamotrigine 50 mg PO BID To lamotrigine 50 mg (2 x 25 mg) PO BID 360 tabs 0RF 90 days Coding Level of Care Code Est Pt Level 4 (59064) Diagnoses Complex partial seizure G40.209 Migraine without status migrainosus, not intractable, unspecified migraine type G43.909 Migraine type: unspecified Status migrainosus presence: without status migrainosus Intractability: not intractable Insomnia, unspecified type G47.00 Insomnia type: unspecified Anxiety F41.9 Spinal muscular atrophy G12.9
--- OUTSIDE RECORDS SUMMARY | 2025-07-12 16:10 | XMS_ITS | Clinical Summary ---
Author Organization [facility] Address [address] [place] [address] Care Team Providers Care Gas Engine Performance Engineer Name Role Phone Unavailable Primary Care Provider Unavailabl e Source Comments PLEASE NOTE, if this patient is a minor, it may be UNLAWFUL to discuss sensitive information that is contained in these records (such as FAMILY PLANNING, MENTAL HEALTH or SUBSTANCE ABUSE) with the minor patient's parent or other person without the patient's specific authorization.[facility] Allergies Active Allergy Reactions Criticality Noted Date Comments Morphine Hives High 12/28/2014 Medications naproxen (NAPROSYN) 375 mg tablet 0 5 Active incontenence pad, liner (PANTY LINERS)Indicatio ns:Interstitial cystitis,Other urinary incontinence Dx: N30.10 intersticial cystitis with incontinence for use 5 times a day. 100 Each 11 5 Active incontenence pad, linerIndications :Interstitial cystitis,Other urinary incontinence Dx: N30.10 intersticial cystitis with incontinence for use use qhs and prn 36 Each 11 5 Active aspirin-acetamin ophen-caffeine (EXCEDRIN MIGRAINE) 250-250-65 mg per tabletIndication s:Migraine without aura and without status migrainosus, not intractable Take 1 Tab by mouth every 6 (six) hours as needed for pain. 60 Tab 2 5 Active omeprazole (PRILOSEC) [address] capsuleIndicatio ns:Gastroesophag eal reflux disease without esophagitis Take 1 Cap by mouth every morning before breakfast. Do not crush or chew. 30 Cap 2 5 Active dicyclomine (BENTYL) 10 mg capsuleIndicatio ns:Irritable bowel syndrome with diarrhea Take 1 Cap by mouth 4 (four) times daily before meals and nightly. 120 Cap 2 5 Active blood pressure monitorIndicatio ns:Essential hypertension, benign I10 HTN: To check BP at home. 1 Kit 0 5 Active hydrochlorothiaz parmjit (HYDRODIURIL) 25 mg tabletIndication s:Essential hypertension Take 1 Tab by mouth once daily. 30 Tab 2 6 Active amoxicillin (AMOXIL) 500 mg capsuleIndicatio ns:Acute URI Take 1 Cap by mouth 3 (three) times daily 30 Cap 0 6 Active loratadine (CLARITIN) 10 mg tabletIndication s:Acute URI Take 1 Tab by mouth once daily as needed for allergies 30 Tab 0 6 Active Active Problems Problem Noted Date Diagnosed Date Essential hypertension 01/01/2016 GERD (gastroesophageal reflux disease) 5 Interstitial cystitis Carpal tunnel syndrome Overview (12/28/2014): bilateral Fibromyalgia Scoliosis Chronic fatigue syndrome Depression Panic attack Social History Tobacco Use Types Packs/Day Years Used Date Smoking Tobacco: Never Smokeless Tobacco: Never Alcohol Use Standard Drinks/Week Comments No 0 (1 standard drink = 0.6 oz pur e alcohol) Social Connections Answer Date Recorded Social Connections and Isolation 0 06/20/2019 Financial Resource Strain Answer Date R ecorded Financial Resource Strain 0 2018 Stress Answer Date Recorded Stress 0 06/20/2019 Physical Activity Answer Date Recorded Physical Activity 0 06/20/2019 Food Insecurity Answer Date Recorded Food 0 06/20/2019 Transportation Needs Answer Date Record ed Transportation 0 06/20/2019 Housing Stability Answer Date Recorded Housing 0 06/20/2019 Safety and Environment Answer Date Mauricio rded Safety 0 06/20/2019 Utilities Answer Date Recorded Utilities 0 06/20/2019 Employment Answer Date Recorded Employment 0 06/20/2019 Comments No Sex and Gender Information Value Date Recorded Sex Assigned at Not on file Legal Sex Female 10:12 AM PST Gender Identity Not on file Sexual Orientation Not on file Last Filed Vital Signs Vital Sign Reading Time Taken Comments Blood Pressure 146/93 10/22/2016 4:58 PM EST Pulse 102 10/22/2016 4:58 PM EST Temperature 37 C (98.6 F) 10/22/2016 4:58 PM EST Respiratory Rate 16 10/22/2016 4:58 PM EST Oxygen Saturation 100% 10/22/2016 4:58 PM EST Inhaled Oxygen Concentration - - Weight 67.1 kg (148 lb) 10/22/2016 4:58 PM EST Height 155 cm (5' 1.02 ) 10/04/2015 4:40 PM EST Body Mass Index 27.95 10/04/2015 4:40 PM EST Plan of Treatment Not on file Insurance [facility] Member Subscriber Plan / Payer (Ef fective 2014-Present) Name:LatifCatalina oviedo Relation to Subscriber:Self Name:Catalina Latif Payer ID:[id number] Group ID:[id number] Type:Medicaid Address: [facility] [address] [place] [address]
--- OUTSIDE RECORDS SUMMARY | 2025-07-12 16:10 | XMS_ITS ---
Author Name [facility] Organization Unknown Care Team Organization Name Specialty Phone Email Start Date End Da sumanth [facility] Lisa Yan Primary Care 09/03/20222023
--- OUTSIDE RECORDS SUMMARY | 2025-07-12 16:10 | XMS_ITS | Clinical Summary ---
Author Organization [place] [address] [address] Formerly [facility] Building Address [address] [place] [phone] Phone Care Team Providers Care Call Center Recruiter Name Role Phone Julissa Marquez MD Primary Care Provider [phone] Allergies Active Allergy Reactions Criticality Noted Date Comments Kiwi 03/04/2024 Throat closes Kiwi (Actinidia Chinensis) Throat closes Medications baclofen (LIORESAL) 10 mg tablet Take 1 tablet (10 mg total) by mouth if needed. 02/03/20 24 Active lamoTRIgine (LaMICtal) 50 mg dispersible tablet Take 2 tablets (100 mg total) by mouth 2 (two) times a day. Active acetaminophen (TYLENOL) 500 mg tablet Take 2 tablets (1,000 mg total) by mouth every 8 (eight) hours if needed. as directed for 30 days 03/08/20 24 Active Excedrin Extra Strength 250-250-65 mg per tablet Take 1 tablet by mouth every 6 (six) hours if needed for headaches. Active diclofenac (VOLTAREN) 1 % topical gel Apply 1 g topically 3 (three) times a day. 90 g 2 03/18/20 25 Active SUMAtriptan (IMITREX) 50 mg tablet Take 1 tablet (50 mg total) by mouth 1 (one) time if needed for migraine. 9 tablet 2 03/14/20 25 Active omeprazole (PriLOSEC) [address] capsule TAKE 1 CAPSULE BY MOUTH TWICE A DAY 180 capsule 1 03/29/20 25 Active dicyclomine (BENTYL) 10 mg capsule TAKE 1 CAPSULE (10 MG TOTAL) BY MOUTH 3 (THREE) TIMES A DAY IF NEEDED (ABDOMINAL PAIN). 90 capsule 3 04/13/20 25 Active amLODIPine (NORVASC) 5 mg tabletIndicatio ns:Essential (primary) hypertension Take 1 tablet (5 mg total) by mouth 1 (one) time each day. 90 tablet 1 05/30/20 25 Active lisinopriL (PRINIVIL,ZESTR IL) 20 mg tablet Take 1 tablet (20 mg total) by mouth 1 (one) time each day. 90 each 1 05/30/20 25 026 Active tirzepatide, weight loss, (Zepbound) 10 mg/0.5 mL injectionIndica tions:Class 3 severe obesity due to excess calories with body mass index (BMI) of 40.0 to 44.9 in adult, unspecified whether serious comorbidity present (CMS/HCC V24, CMS/HCC V28) Inject 0.5 mL (10 mg total) under the skin every 7 (seven) days. 2 mL 1 07/07/20 25 025 Active gabapentin (NEURONTIN) 100 mg capsule Take 1 capsule (100 mg total) by mouth at bedtime. 30 each 2 07/11/20 25 025 Active naproxen (NAPROSYN) 500 mg tablet Take 1 tablet (500 mg total) by mouth 2 (two) times a day with meals. 60 tablet 07/11/20 25 Active EPINEPHrine (EPIPEN) 0.3 mg/0.3 mL injection Inject 0.3 mL (0.3 mg total) into the thigh if needed for anaphylaxis. 1 each 2 07/11/20 25 026 Active amoxicillin-cla vulanate (AUGMENTIN) 875-125 mg per tablet Take 1 tablet by mouth 2 (two) times a day for 7 days. 14 each 07/12/20 25 025 Active azithromycin (ZITHROMAX) 250 mg tablet Take 2 tablets (500 mg total) by mouth 1 (one) time each day for 1 day, THEN 1 tablet (250 mg total) 1 (one) time each day for 4 days. 6 each 07/12/20 25 09/21/2 025 Active ferrous sulfate 325 mg (65 mg elemental iron) tablet Take 1 tablet (325 mg total) by mouth every other day. 025 Discontinued gabapentin (NEURONTIN) 100 mg capsule Take 1 capsule (100 mg total) by mouth at bedtime. 30 each 2 03/01/20 25 025 Discontinued(Re order) naproxen (NAPROSYN) 500 mg tablet Take 1 tablet (500 mg total) by mouth 2 (two) times a day with meals. 60 tablet 03/14/20 025 Discontinued(Re order) tirzepatide, weight loss, (Zepbound) 7.5 mg/0.5 mL injectionIndica tions:Class 1 obesity due to excess calories with body mass index (BMI) of 30.0 to 30.9 in adult, unspecified whether serious comorbidity present Inject 0.5 mL (7.5 mg total) under the skin every 7 (seven) days. 2 mL 1 06/01/20 025 Discontinued(Al ternate therapy) phentermine 15 mg capsuleIndicati ons:Class 3 severe obesity due to excess calories with body mass index (BMI) of 40.0 to 44.9 in adult, unspecified whether serious comorbidity present (CMS/HCC V24, CMS/HCC V28) Take 1 capsule (15 mg total) by mouth 1 (one) time each day before breakfast. 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 Baeza Peripheral neuropathy 02/18/2024 Seizure disorder ([facility] V24, [facility] V28) 03/2023 Overview (07/30/2024): Follows with Dr. Baeza neurology Anxiety 03/13/2023 GERD (gastroesophageal reflux disease) 5 Encounters Date Type Department Care Team Description 07/12/2025 9:35 AM EDT Hospital Encounter [facility] [address] [place], [place] [address] [place] [address] Thyroid nodule 07/11/2025 8:41 AM EDT - 07/11/2025 11:59 PM EDT [facility] [address] [place], [place] [address] [phone] Subacute cough Discharge Disposition: Home or Self Care 07/11/2025 8:00 AM EDT Office Visit Internal Medicine - [address] [phone] Moses Cheema PA Health maintenance examination (Primary Dx); Subacute cough; Thyroid nodule; Primary hypertension; Pneumonia of both lower lobes due to infectious organism 07/11/2025 Telephone Internal Medicine - [address] [phone] Julissa Marquez MD 07/07/2025 10:45 AM EDT Office Visit Bariatric Surgery - [place] [address] [facility] [address] [place] [phone] Majo Coronel MD Class 3 severe obesity due to excess calories with body mass index (BMI) of 40.0 to 44.9 in adult, unspecified whether serious comorbidity present ([facility] V24, [facility] V28) (Primary Dx) from Last 3 Months Immunizations Name Administration Dates Next Due Influenza Quadravalent, MDCK , 0.5ml, preservative free (Flucelvax) 6mo and older 10/11/2021 Surgical History Surgery Date Site/Laterality Comments CARPAL TUNNEL RELEASE Bilateral PROCEDURE: RI NEUROPLASTY &/TRANSPOS MEDIAN NRV CARPAL TUNNE; COMMENT: in 2009 APPENDECTOMY PROCEDURE: HISTORICAL APPENDECTOMY BREAST REDUCTION PROCEDURE: RI BREAST REDUCTION OTHER SURGICAL HISTORY PROCEDURE: HISTORICAL PANNICULECTOMY SECTION PROCEDURE: HISTORICAL DELIVERY OTHER SURGICAL HISTORY 09/08/2015 PROCEDURE: RI MYOMECTOMY 1-4 MYOMAS W/250 GM/< ABDOMINAL APPR; COMMENT: Laparotomy, uterine myomectomy. Postop hemoperitoneum, reoperation. BLADDER SURGERY PROCEDURE: HISTORICAL BLADDER SURGERY; COMMENT: ?Tumor excision OTHER SURGICAL HISTORY 06/26/2021 Bilateral PROCEDURE: RI SALPINGECTOMY COMPLETE/PARTIAL UNI/BI SPX; COMMENT: Laparoscopic salpingectomy OTHER SURGICAL HISTORY 03/08/2024 PROCEDURE: RI LAPS TOTAL HYSTERECT 250 GM/< W/RMVL TUBE/OVARY; COMMENT: Robot assisted total laparoscopic hysterectomy. Medical History Medical History Date Comments HTN (hypertension) DX:HTN (hyper tension) Scoliosis DX:Scoliosis Obesity (BMI 30-39.9) DX:Obesity (BMI 30-39.9) Anemia DX:Anemia Anxiety 03/13/2023 DX:Anxiety GERD (gastroesophageal reflux disease) Disease of thyroid gland Goiter History of transfusion Depression Arthritis Joint pain Fibromyalgia Family History Medical History Relation Name Comments Other: DM2 Father HTN Breast cancer Maternal Grandmother Breast cancer Mother Uterine cancer Mother Breast cancer Mother's side Maternal cous in. from breast cancer young age. Relation Name Status Comments Father Alive Maternal Grandmother Mother Mother's side Social History Tobacco Use Types Packs/Day Years [...] Record ed Within the last 3 months, charan w many times did you visit the [...] care for your loved ones. For example, children librarian or elderly care for an older adult? [...] Orientation Straight 01/25/2025 1: 56 PM EDT Obstetrics History Last Filed Vital Signs Vital Sign Reading Time Taken Comments Blood Pressure 138/82 07/11/2025 8:10 AM EDT Pulse 74 07/11/2025 8:10 AM EDT Temperature 36.4 C (97.5 F) 07/07/2025 10:50 AM EDT Respiratory Rate 16 07/11/2025 8:10 AM EDT Oxygen Saturation 100% 03/22/2025 1:02 PM EDT Inhaled Oxygen Concentration - - Weight 70.3 kg (155 lb) 07/11/2025 8:10 AM EDT Height 154.9 cm (5' 1 ) 07/07/2025 10:50 AM EDT Body Mass Index 29.29 07/07/2025 10:50 AM EDT Plan of Treatment Upcoming Encounters Date Type Department Care Team (Late st Contact Info) Description 07/26/2025 5:10 PM EDT Appointment Radiology Department [address] [phone] 12/29/2025 9:15 AM EST Office Visit Bariatric Surgery - [address] [place] [phone] Majo Coronel MD [address] [place] [phone] 01/09/2026 9:30 AM EDT Office Visit Internal Medicine - [facility] [address] [place] [phone] Moses Cheema PA [address] [place] [address] Health Maintenance Due Date Last Done Comments Breast Cancer Screening 1979 DTaP,Tdap,and Td Vaccines (1 - Tdap) 1998 Hepatitis B Vaccines (1 of 3 - 19+ 3-dose series) 1998 Cervical Cancer Screening: Pap Smear 2000 Depression Screening 10/27/2024 03/19/2024 COVID-19 Vaccine ( - season) 2025 Influenza Vaccine (#1) 2025 10/11/2021 Hypertension/CHF/CAD Annual BMP Blood Test 07/11/2026 07/11/2025, 01/13/2025, 09/15/2024, Additional history exists Social Influencers of Health Screening 07/11/2026 07/11/2025 Cholesterol Screening (Lipid Panel) 06/25/2029 06/25/2024, 06/25/2024 Colorectal Cancer Screening: Colonoscopy 08/27/2034 08/27/2024 HIB Vaccines Aged Out No longer eligi ble based on patient's age to complete this topic HIV Screening Discontinued HPV Vaccines Aged Out No longer eligi ble based on patient's age to complete this topic Hepatitis A Vaccines Aged Out No long er eligible based on patient's age to complete this topic Hepatitis C Screening Discontinued IPV Vaccines Aged Out No longer eligi ble based on patient's age to complete this topic MMR Vaccines Aged Out No longer eligi ble based on patient's age to complete this topic Meningococcal ACWY Vaccine Aged Out N o longer eligible based on patient's age to complete this topic Meningococcal B Vaccine Aged Out No l onger eligible based on patient's age to complete this topic Pneumococcal Vaccine: Pediatrics (0 to 5 Years) and At-Risk Patients (6 to 49 Years) Aged Out No longer eligible based on patient's age to complete this topic RSV Immunization Patients Under 20 months Aged Out No longer eligible based on patient's age to complete this topic Varicella Vaccines Aged Out No longer eligible based on patient's age to complete this topic Goals Goal Patient Goal Type Associated Problems Recent Progress Patient-Stated? Author PT LTGs General No Abelardo Duran, PT Note: Pt will report no right hip pain with stair management Pt will increase right hip strength to 5/5 Pt will increase right hip PROM to WNL Pt will be independent with HEP Procedures Procedure Name Priority Date/Time Associated Diagnosis Comments CBC WITH AUTO DIFFERENTIAL Routine 07/11/2025 8:56 AM EDT Subacute cough CBC AND DIFFERENTIAL Routine 07/11/2025 8:56 AM EDT Subacute cough COMPREHENSIVE METABOLIC PANEL Routine 07/11/2025 8:56 AM EDT Primary hypertension THYROID STIMULATING HORMONE WITH REFLEX TO FREE T4 AND FREE T3 Routine 07/11/2025 8:56 AM EDT Thyroid nodule XR CHEST 2 VIEWS Routine 07/11/2025 8:48 AM EDT Subacute cough EXTERNAL COLONOSCOPY REPORT Routine 08/27/2024 3:16 PM EDT LIPID PANEL Routine 06/25/2024 DEPRESSION SCREENING Routine 03/19/2024 from Last 3 Months or Most Recently Relevant to Health Maintenance Results * Thyroid stimulating hormone with reflex to free t4 and free t3 (07/11/2025 8:56 AM EDT) [facility] TSH 0.53 0.40 - 4.00 mcIU/mL LAB CHEMISTRY METHOD 07/11/2025 3:51 PM EDT [facility] Blood Venous blood specimen / Unknown Venipuncture / Unknown 07/11/2025 8:56 AM EDT 07/11/2025 8:56 AM EDT Moses VELASQUEZ LAB BLOOD ORDERABLES Fi nal Result [facility] [address] [place] [address], * (ABNORMAL) CBC auto differential (07/11/2025 8:56 AM EDT) [facility] WBC 9.1 4.8 - 10.8 K/mcL LAB HEMETOLOGY METHOD 07/11/2025 12:36 PM EDT [facility] RBC 4.40 3.80 - 4.80 M/mcL LAB HEMETOLOGY METHOD 07/11/2025 12:36 PM EDT [facility] Hemoglobin 12.8 11.5 - 16.0 g/dL LAB HEMETOLOGY METHOD 07/11/2025 12:36 PM EDT [facility] Hematocrit 40.1 35.0 - 47.0 % LAB HEMETOLOGY METHOD 07/11/2025 12:36 PM EDT [facility] MCV 91.8 79.0 - 98.0 FL LAB HEMETOLOGY METHOD 07/11/2025 12:36 PM EDT [facility] MCH 29.3 27.0 - 32.0 pcg LAB HEMETOLOGY METHOD 07/11/2025 12:36 PM EDT [facility] MCHC 31.9(L) 32.0 - 37.0 g/dL LAB HEMETOLOGY METHOD 07/11/2025 12:36 [facility] RDW 11.8 11.0 - 15.0 % LAB HEMETOLOGY METHOD 07/11/2025 12:36 PM EDT [facility] Platelets 410(H) 130 - 400 K/mcL LAB HEMETOLOGY METHOD 07/11/2025 12:36 [facility] MPV 9.1 7.0 - 11.0 FL LAB HEMETOLOGY METHOD 07/11/2025 12:36 [facility] NRBC 0.0 <1.0 % LAB HEMETOLOGY METHOD 07/11/2025 12:36 PM EDT [facility] NRBC Absolute 0.00 <0.10 K/mcL LAB HEMETOLOGY METHOD 07/11/2025 12:36 [facility] Neutrophils Relative 69.4 % LAB HEMETOLOGY METHOD 07/11/2025 12:36 PM [facility] Lymphocytes Relative 21.3 % LAB HEMETOLOGY METHOD 07/11/2025 12:36 PM EDT [facility] Monocytes Relative 5.9 % LAB HEMETOLOGY METHOD 07/11/2025 12:36 PM [facility] Eosinophils Relative 2.2 % LAB HEMETOLOGY METHOD 07/11/2025 12:36 PM [facility] Basophils Relative 0.6 % LAB HEMETOLOGY METHOD 07/11/2025 12:36 PM [facility] Immature Granulocytes Relative 0.6 % LAB HEMETOLOGY METHOD 07/11/2025 12:36 PM EDT [facility] Neutrophils Absolute 6.29 1.50 - 7.00 K/mcL LAB HEMETOLOGY METHOD 07/11/2025 12:36 PM EDT [facility] Lymphocytes Absolute 1.93 1.00 - 5.00 K/mcL LAB HEMETOLOGY METHOD 07/11/2025 12:36 PM EDT [facility] Monocytes Absolute 0.53 0.20 - 1.00 K/mcL LAB HEMETOLOGY METHOD 07/11/2025 12:36 PM EDT [facility] Eosinophils Absolute 0.20 0.00 - 0.50 K/mcL LAB HEMETOLOGY METHOD 07/11/2025 12:36 PM EDT [facility] Basophils Absolute 0.05 0.00 - 0.20 K/mcL LAB HEMETOLOGY METHOD 07/11/2025 12:36 PM EDT [facility] Immature Granulocytes Absolute 0.05(H) 0.00 - 0.03 K/[facility] LAB HEMETOLOGY METHOD 07/11/2025 12:36 PM EDT [facility] Blood Venous blood specimen / Unknown Venipuncture / Unknown 07/11/2025 8:56 AM EDT 07/11/2025 8:56 AM EDT Moses VELASQUEZ LAB BLOOD ORDERABLES Fi nal Result [facility] [address] [place] [address], * Comprehensive metabolic panel (07/11/2025 8:56 AM EDT) Sodium 139 133 - 145 mmol/L LAB CHEMISTRY METHOD 07/11/2025 2:38 PM EDT [facility] Potassium 4.4 3.5 - 5.5 mmol/L LAB CHEMISTRY METHOD 07/11/2025 2:38 PM [facility] Chloride 107 96 - 110 mmol/L [...] LAB CHEMISTRY METHOD 07/11/2025 2:38 PM EDT [facility] Total Bilirubin 0.9 0.0 - 1.4 mg/dL LAB CHEMISTRY METHOD 07/11/2025 2:38 PM EDT [facility] Blood Venous blood specimen / Unknown Venipuncture / Unknown 07/11/2025 8:56 AM EDT 07/11/2025 8:56 AM EDT us Moses VELASQUEZ LAB BLOOD ORDERABLES Fi nal Result [facility] [address] [place] [address], [place] [phone] * XR Chest 2 Views (07/11/2025 8:48 [...] Signed Date: 07/11/2025 10:56 ET Workstation ID: [id number] Transcribed By: Self Edit Transcribed Date: 07/11/2025 [...] Signed Date: 07/11/2025 10:56 ET Workstation ID: [id number] Transcribed By: Self Edit Transcribed Date: 07/11/2025 10:55 ET Moses VELASQUEZ IMG XR PROCEDURES Final Result * External Colonoscopy Report (08/27/2024 3:16 PM EDT) Anatomical Region Laterality Modality Endoscopy Result [facility] Historical Provider GI~PROCEDURE ORDERABLES F inal Result * (ABNORMAL) Lipid panel (06/25/2024) LDL/HDL Ratio 5(A) 0 - 4 Triglycerides 208(A) 0 - 150 mg/dL Cholesterol 195 0 - 200 mg/dL HDL 39(A) >=40 mg/dL LDL Cholesterol 115(A) 0 - 100 mg/dL Blood Venous blood specimen / Unknown Result [facility] Historical Provider LAB BLOOD ORDERABLES Elsy l Result * Depression Screening (03/19/2024) Depression Screening abstracted Historical Provider HEALTH MAINTENANCE Final Result from Last 3 Months or Most Recently Relevant to Health Maintenance Additional Health Concerns Infection Onset Date Last Indicated 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
--- OUTSIDE RECORDS SUMMARY | 2025-07-12 16:10 | XMS_ITS | Encounter Summary ---
Author Organization [facility] Address [address] [place] [address] Care Team Providers Care Oil Field Laborer Name Role Phone Julissa Marquez MD Primary Care Provider [phone] Reason for Visit * Reason Onset Date Comments Results 07/11/2025 Encounter Details Date Type Department Care Team (Late st Contact Info) Description 07/11/2025 Telephone Internal Medicine - [facility] [address] [place], [place] [phone] Julissa Marquez MD [address] [place], [place] Social History Tobacco Use Types Packs/Day Years [...] care for your loved ones. For example, manager child or elderly care for an older adult? [...] PM EDT documented as of this encounter Progress Notes * Julianne Hernandez MA - 07/11/2025 4:10 PM EDT Spoke with pt and explained PCP has not reviewed results yet. * Mimi Ordoñez - 07/11/2025 4:03 PM EDT Pt had a chest xray today and would like a call back to discuss results thank you documented in this encounter Plan of Treatment Upcoming Encounters Date Type Department Care Team (Late st Contact Info) Description 07/26/2025 5:10 PM EDT Appointment Radiology Department [address] [phone] 12/29/2025 9:15 AM EST Office Visit Bariatric Surgery - [address] [place] [phone] Majo Coronel MD [address] [place] [phone] 01/09/2026 9:30 AM EDT Office Visit Internal Medicine - [facility] [address] [place], [place] [phone] Moses Cheema PA [address] [place] [address] documented as of this encounter Goals Goal Patient Goal Type Associated Problems Recent Progress Patient-Stated? 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
== END 2025-07-12 12:34 | disposition home or self-care (01) ==
LOC: HO.HSM 11:58
PROVIDERS: PCP Family Medicine; Visit Provider Registered Nurse
DX: G40.209 Localization-related (focal) (partial) symptomatic epilepsy and epileptic syndromes with complex partial seizures, not intractable, without status epilepticus (principal); G43.909 Migraine, unspecified, not intractable, without status migrainosus; G47.00 Insomnia, unspecified; F41.9 Anxiety disorder, unspecified; G12.9 Spinal muscular atrophy, unspecified
CPT/HCPCS: 99214

== ENCOUNTER → 2025-07-12 11:58 | Outpatient (BNVA) | payer OTHER, SELFPAY | PROVIDERS: PCP Family Medicine; Visit Provider Registered Nurse | DX: G40.209 Localization-related (focal) (partial) symptomatic epilepsy and epileptic syndromes with complex partial seizures, not intractable, without status epilepticus (principal); G43.909 Migraine, unspecified, not intractable, without status migrainosus; G47.00 Insomnia, unspecified; F41.9 Anxiety disorder, unspecified; G12.9 Spinal muscular atrophy, unspecified; Z79.899 Other long term (current) drug therapy | CPT/HCPCS: 99212 ==